=== PATIENT | male | born 1950 | race Caucasian/White ===

== ENCOUNTER → 2016-04-19 | Outpatient (CLI) | payer MEDICARE, BC | LOC: MW.CHORTHO 08:00 | PROVIDERS: ATTEND Orthopaedic Surgery | DX: M75.42 Impingement syndrome of left shoulder (principal); M75.102 Unspecified rotator cuff tear or rupture of left shoulder, not specified as traumatic; Z98.890 Other specified postprocedural states | CPT/HCPCS: G0463 ==

== ENCOUNTER → 2016-04-26 | Outpatient (CLI) | payer MEDICARE, BC | LOC: MW.CHIM 08:50 | PROVIDERS: ATTEND Internal Medicine | DX: I10 Essential (primary) hypertension (principal); E11.9 Type 2 diabetes mellitus without complications; E78.5 Hyperlipidemia, unspecified; N52.9 Male erectile dysfunction, unspecified | CPT/HCPCS: 36415; 80053; 80061; 83036; 85025; 99214 ==

== ENCOUNTER → 2016-04-28 | Outpatient (CLI) | payer MEDICARE, BC | LOC: MW.CHGS 08:00 | PROVIDERS: ATTEND Surgery | DX: M62.08 Separation of muscle (nontraumatic), other site (principal); Z12.11 Encounter for screening for malignant neoplasm of colon | CPT/HCPCS: 99203 ==

== ENCOUNTER → 2016-06-02 | Outpatient (CLI) | payer MEDICARE, BC ==
--- NOTE | 2016-06-03 16:16 | MR ---
EXAM DATE: 06/02/16 PATIENT'S AGE: 65 Patient: PATRICIO PANTOJA Facility: [place], [place] Site . Site : 1950 Study: MRI Shoulder Left [id number]/27/2017 3:51:25 PM Ordering Physician: Angelia Moore Final Report: HISTORY: Shoulder pain with history of previous surgery. Technique: Routine shoulder protocol. Findings: Rotator cuff: Multiple anchors are seen in the lateral portion of the humeral head consistent with an apparent previous rotator cuff repair. There are no previous studies for comparison. There is prominent increased signal intensity and high-grade diffuse thinning of the supraspinatus tendon. A definite full- thickness retear is not confirmed. There is mild tendinosis and low-grade thinning of the subscapularis and infraspinatus tendons. There is a large subacromial bursa effusion present. Acromioclavicular joint region: Mild degenerative change is present. There is a flat, type 1 acromial undersurface. Biceps labral complex: There is likely degenerative tearing and fragmentation of the superior labrum. There is disruption of the long biceps tendon without visualization of the tendon presumably due to retraction out of the field of view. The anterior and posterior labrum are intact. Glenohumeral joint: Mild articular cartilage loss is noted. There is mild shoulder joint effusion present. No loose body is noted. Bones and soft tissues: No findings for fracture or tumor. Impression: 1. Evidence for previous rotator cuff repair. There is prominent increased signal intensity and high-grade thinning of the supraspinatus tendon but no full -thickness retear is noted. There is also mild tendinosis and low-grade thinning of the subscapularis and infraspinatus tendons. Large subacromial bursa effusion indicates bursitis. 2. Degenerative tearing of the superior labrum with disruption of the long biceps tendon. Dictated by Randy Polk MD @ Jun 03 2016 9:43AM (Electronic Signature) Report Signed by Proxy. ANNEMARIE
== END ==
LOC: MW.MRI 14:16
PROVIDERS: ATTEND Orthopaedic Surgery
DX: M25.512 Pain in left shoulder (principal); M75.42 Impingement syndrome of left shoulder; M75.102 Unspecified rotator cuff tear or rupture of left shoulder, not specified as traumatic; M75.82 Other shoulder lesions, left shoulder; M75.52 Bursitis of left shoulder
CPT/HCPCS: 73221-26-LT; 73221-LT

== ENCOUNTER → 2016-06-09 | Outpatient (CLI) | payer MEDICARE, BC | LOC: MW.CHORTHO 08:00 | PROVIDERS: ATTEND Orthopaedic Surgery | DX: M75.42 Impingement syndrome of left shoulder (principal); M75.102 Unspecified rotator cuff tear or rupture of left shoulder, not specified as traumatic | CPT/HCPCS: G0463 ==

== ENCOUNTER 2017-02-09 11:08 | Day surgery (SDC) | payer MEDICARE, BC ==
[~2017-02-09 11:08] MED LIST: Lactated Ringers 1,000 ML IV SCH
[2017-02-09] MEDS ORDERED: Propofol 200 MG/20 ML SDV ONE (12:52)
[2017-02-09] MEDS ORDERED: fentaNYL 100 MCG/2 ML SDV ONE (12:52)
[2017-02-09] MEDS ORDERED: Lidocaine 2% 5 ML SDV ONE (12:52)
--- NOTE | 2017-02-09 13:03 | PCM.PREANE ---
Preanesthetic Assessment - Anesthesia/Transfusion/Family Hx Anesthesia History: Prior Anesthesia Without Reaction Family History of Anesthesia Reaction: No Transfusion History: No Prior Transfusion(s) Intubation History: Unknown - Review of Systems General: No Symptoms Pulmonary: No Symptoms Cardiovascular: No Symptoms Gastrointestinal: Other (acid reflux) Neurological: No Symptoms Other: Reports: None - Physical Assessment O2 Sat by Pulse Oximetry: 97 Respiratory Rate: 16 Vital Signs: Last Vital Signs Temp 36.2 C 02/09/17 11:33 Pulse 81 02/09/17 11:33 Resp 16 02/09/17 11:33 BP 125/90 02/09/17 11:33 Pulse Ox 97 02/09/17 11:33 Height: 1.83 m Weight: 113.398 kg ASA Class: 3 Mental Status: Alert & Oriented x3 Airway Class: Mallampati = 2 Dentition: Reports: Normal Dentition (small chip front upper incisor) Thyro-Mental Finger Breadths: 2 Mouth Opening Finger Breadths: 3 ROM/Head Extension: Full Lungs: Clear to Auscultation, Normal Respiratory Effort Cardiovascular: Regular Rate, Regular Rhythm - Allergies Allergies/Adverse Reactions: Allergies Allergy/AdvReac Type Severity Reaction Status Date / Time allopurinol Allergy unknown Verified 02/03/17 12:08 hydrochlorothiazide Allergy unknown Verified 02/03/17 12:08 - Blood Blood Available: No - Anesthesia Plan Pre-Op Medication Ordered: None - Acknowledgements Anesthesia Type Planned: MAC Pt an Appropriate Candidate for the Planned Anesthesia: Yes Alternatives and Risks of Anesthesia Discussed w Pt/Guardian: Yes Pt/Guardian Understands and Agrees with Anesthesia Plan: Yes PreAnesthesia Questionnaire HEENT History: Reports: Allergic Rhinitis Cardiovascular History: Reports: High Cholesterol, Hypertension Other Cardiovascular History: has had recent cardiac work-op, states "cleared" Respiratory History: Reports: Sleep Apnea Other Respiratory History: does not use CPAP Gastrointestinal History: Reports: Colon Polyp Genitourinary History: Reports: BPH Musculoskeletal History: Reports: Arthritis, Other (See Below) Other Musculoskeletal History: left shoulder pain at present Endocrine/Metabolic History: Reports: Diabetes, Type II, Obesity/BMI 30+ - Infectious Disease History Infectious Disease History: Reports: Chicken Pox - Past Surgical History Head Surgeries/Procedures: Reports: None HEENT Surgical History: Reports: Naso-Sinus Surgery Other HEENT Surgeries/Procedures: has 2 upper dental stems (for implants) GI Surgical History: Reports: Colonoscopy (9 years ago) Musculoskeletal Surgical History: Reports: Shoulder Surgery Other Musculoskeletal Surgeries/Procedures:: left rotator cuff surgery Dr. Galan 12/2015 - SUBSTANCE USE Smoking Status *Q: Never Smoker Tobacco Use Within Last Twelve Months: No Second Hand Smoke Exposure: No Recreational Drug Use History: No - HOME MEDS Home Medications: Home Meds Aspirin [[place] Aspirin] 81 mg PO DAILY 01/01/16 [History] Enalapril Maleate 10 mg PO DAILY 01/01/16 [History] metFORMIN HCl [Metformin HCl] 500 mg PO DAILY 01/01/16 [History] Simvastatin [Zocor] 20 mg PO BEDTIME 02/03/17 [History] Tadalafil [Cialis] 5 mg PO DAILY 02/03/17 [History] - CURRENT (IN HOUSE) MEDS Current Meds: Current Medications Lactated Ringer's (Ringers, Lactated) 1,000 mls @ 125 mls/hr IV ASDIRECTED RADHA Last Admin: 02/09/17 11:32 Dose: 125 mls/hr Discontinued Medications Fentanyl (Sublimaze) Confirm Administered Dose 100 mcg .ROUTE .STK-MED ONE Stop: 02/09/17 12:53 Lidocaine (Xylocaine-Mpf 2%) Confirm Administered Dose 5 ml .ROUTE .STK-MED ONE Stop: 02/09/17 12:53 Propofol (Diprivan 20 Ml) Confirm Administered Dose 400 mg .ROUTE .STK-MED ONE Stop: 02/09/17 12:53
--- NOTE | 2017-02-09 13:36 | PCM.OPNOTE ---
- General Post-Op/Procedure Note Date of Surgery/Procedure: 02/09/17 Operative Procedure(s): egd w bx and colonoscopy Findings: see dict [id number] Pre Op Diagnosis: abd pain and gerd Post-Op Diagnosis: gastritis and gerd, hemorrhoid Anesthesia Technique: Moderate Sedation Primary Surgeon: Enoc Curtis Pathology: egd bx Complications: None Condition: Good
--- NOTE | 2017-02-09 14:19 | OR ---
SURGEON: Enoc Curtis MD DATE OF PROCEDURE: 02/09/2017 PREOPERATIVE DIAGNOSIS: Abdominal pain and acid reflux. POSTOPERATIVE DIAGNOSES: 1. EGD diagnoses, acid reflux and gastritis. 2. Colonoscopy diagnosis, internal hemorrhoid. PROCEDURE PERFORMED: Esophagogastroduodenoscopy with biopsy and colonoscopy. EGD FINDINGS: 1. The patient is easily sedated with SR VICE PRESIDENT and Diprivan. The patient is soundly snoring. 2. Oropharynx and proximal esophagus are free of disease and no stricture, inflammation, blood, or ulcer. Distal esophagus at GE junction at 40 shows mild salmon color change consistent with acid reflux. Stomach rugae is normal in appearance. There is no blood, ulcer, food particle, or bile. There was one drop of blood, I do not think it mean anything, but we saw just one drop. Antrum was a little bit inflamed. Duodenum was grossly normal. Scope retrieved back to the stomach. Retroflexed look at the fundus of the stomach, there was no hiatal hernia. Biopsy done at antrum, body, GE junction at 40 and sucked out the air while scope pulling out. Again, we did not encounter any food or bile and it is a little bit inflamed in the antrum. PROCEDURE IN DETAIL: The patient was taken to the endoscopy room, and with the SR VICE PRESIDENT, Diprivan was administered. A well-lubricated EGD scope was gently inserted through the oropharynx, down the esophagus, passing through the gastroesophageal junction, into the stomach. The mucosa was examined upon the passage. Any etiology will be noted. Once in the stomach, we continued to advance to the distal antrum, passed through the pylorus into the second portion of the duodenum. Again, the mucosa was examined for any abnormality and etiology. The scope was then retrieved back to the stomach and then retroflexed to look at the fundus of the stomach. If a biopsy was indicated, we will biopsy the antrum, body, and gastroesophageal junction. The air will be sucked out while the scope is retrieved to reduce the patient's discomfort. The patient tolerated the procedure well. There were no intraoperative complications. Dr. Curtis was present through the whole procedure. Prior to surgery, a time-out had been called, the patient identified, procedure identified and antibiotic administered. COLONOSCOPY FINDINGS: The patient is easily sedated with SR VICE PRESIDENT and Diprivan. The patient is soundly snoring and bowel prep is average to good, and a very little liquid stool, no semi-formed stool. Colon is rather straight forward. Cecum indicated by ileocecal fold, one-to-one indentation. Light immittance is not observed. Appendiceal orifice is not observed. Mucosa examined upon scope pulling out. The patient does not have diverticulosis, polyp, mass, growth, inflammation, stricture, ulceration, bleeding, none of those and no polyps. The patient has moderate internal hemorrhoids and moderate external hemorrhoids. The patient would benefit from a repeat colonoscopy in 10 years from today or if clinically indicated otherwise. PROCEDURE IN DETAIL: The patient was taken to the endoscopy room. A time out was called, patient identified, and procedure identified. Diprivan was then administrated. Patient went from awake to sleep, hearing doctor talking or door closing is normal. Perineum inspection and digital examination were then performed. A well- lubricated colonoscope was gently inserted through the rectum, advanced past the rectosigmoid junction, the descending colon, splenic flexure, transverse colon, hepatic flexure, ascending colon, arrived to the cecum. Cecum was identified as dictated in the finding. Then the scope was carefully withdrawn while attention was paid to the mucosal surface for any abnormality. Air will be sucked out during the scope withdrawal. At the rectum, retroflexed to examine any rectal diseases, fistula or hemorrhoids. The patient tolerated procedure well. There were no intraoperative complications, and Dr. Curtis was present throughout the whole procedure. MIGUEL ANGEL / ZACH /[id number]
[2017-02-09 14:20] VITALS: BP 135/84
== END 2017-02-09 14:20 | disposition home or self-care (01) ==
LOC: MW.SDS 11:08
PROVIDERS: ATTEND Surgery
DX: K21.9 Gastro-esophageal reflux disease without esophagitis (principal); K29.50 Unspecified chronic gastritis without bleeding; R07.89 Other chest pain; I10 Essential (primary) hypertension; E11.9 Type 2 diabetes mellitus without complications; E78.5 Hyperlipidemia, unspecified; N40.0 Benign prostatic hyperplasia without lower urinary tract symptoms; N52.9 Male erectile dysfunction, unspecified; E66.9 Obesity, unspecified; M17.12 Unilateral primary osteoarthritis, left knee; J32.9 Chronic sinusitis, unspecified; K43.9 Ventral hernia without obstruction or gangrene; K64.4 Residual hemorrhoidal skin tags; K64.8 Other hemorrhoids; Z88.8 Allergy status to other drugs, medicaments and biological substances; Z79.82 Long term (current) use of aspirin; Z79.84 Long term (current) use of oral hypoglycemic drugs; Z68.33 Body mass index [BMI] 33.0-33.9, adult; Z86.010 Personal history of colon polyps
CPT/HCPCS: 43239; 45378; 82962; J3010; J7120; 00813; 88305; 88312; J2704

== ENCOUNTER 2020-08-30 22:19 | Observation (INO) | payer MEDICARE, BC ==
--- NOTE | 2020-08-30 22:22 | EDM.PDOC ---
ED HPI GENERAL MEDICAL PROBLEM - General Stated Complaint: CELULLITIS ON LEG Time Seen by Provider: 08/30/20 22:20 Source of Information: Reports: Patient History Limitations: Reports: No Limitations - History of Present Illness INITIAL COMMENTS - FREE TEXT/NARRATIVE: 69-year-old male past medical history hypertension, cellulitis presents for worsening cellulitis of left lower extremity. Patient was seen by his primary care physician 3 days ago and started on Keflex and Bactrim for presumed cellulitis of the left lower extremity. Started as a red area around his knee and now spreading to his entire lower leg. Denies any systemic symptoms of fever, chest pain, shortness of breath, nausea, vomiting. He has been compliant with his antibiotics. He notes that he had a x-ray imaging of the knee which was unremarkable as well as an ultrasound which did not reveal evidence of DVT or abscess. He does note an area on his anterior knee that was concerning for abscess hence the ultrasound but seems to be getting bigger and more painful. Left Knee Pain Score (Numeric/FACES): 10 - Related Data Allergies Allergy/AdvReac Type Severity Reaction Status Date / Time allopurinol Allergy unknown Verified 08/30/20 22:34 hydrochlorothiazide Allergy unknown Verified 08/30/20 22:34 Home Meds: Home Meds Enalapril Maleate 10 mg PO DAILY 01/01/16 [History] metFORMIN HCl [Metformin HCl] 500 mg PO DAILY 01/01/16 [History] Simvastatin [Zocor] 20 mg PO BEDTIME 02/03/17 [History] tadalafiL [Cialis] 5 mg PO DAILY 02/03/17 [History] Metoprolol Tartrate 25 mg PO BID 08/30/20 [History] Pantoprazole Sodium [Protonix] 40 mg PO DAILY 08/30/20 [History] Sulfamethoxazole/Trimethoprim [Septra DS] DAILY 08/30/20 [History] cephALEXin [Keflex] 500 mg PO QID 08/30/20 [History] Past Medical History HEENT History: Reports: Allergic Rhinitis Cardiovascular History: Reports: High Cholesterol, Hypertension Other Cardiovascular History: has had recent cardiac work-op, states "cleared" Respiratory History: Reports: Sleep Apnea Other Respiratory History: does not use CPAP Gastrointestinal History: Reports: Colon Polyp Genitourinary History: Reports: BPH Musculoskeletal History: Reports: Arthritis, Other (See Below) Other Musculoskeletal History: left shoulder pain at present Endocrine/Metabolic History: Reports: Diabetes, Type II, Obesity/BMI 30+ - Infectious Disease History Infectious Disease History: Reports: Chicken Pox - Past Surgical History Head Surgeries/Procedures: Reports: None HEENT Surgical History: Reports: Naso-Sinus Surgery Other HEENT Surgeries/Procedures: has 2 upper dental stems (for implants) GI Surgical History: Reports: Colonoscopy (9 years ago) Musculoskeletal Surgical History: Reports: Shoulder Surgery Other Musculoskeletal Surgeries/Procedures:: left rotator cuff surgery Dr. Galan 12/2015 Social & Family History - Family History Family Medical History: No Pertinent Family History - Caffeine Use Caffeine Use: Reports: None ED ROS GENERAL - Review of Systems Review Of Systems: Comprehensive ROS is negative, except as noted in HPI. ED EXAM, GENERAL - Physical Exam Exam: See Below Exam Limited By: No Limitations General Appearance: Alert, WD/WN, No Apparent Distress Ears: Hearing Grossly Normal Throat/Mouth: Normal Voice, No Airway Compromise Head: Atraumatic, Normocephalic Neck: Normal Inspection Respiratory/Chest: No Respiratory Distress, Lungs Clear, Normal Breath Sounds, No Accessory Muscle Use Cardiovascular: Normal Peripheral Pulses, Regular Rate, Rhythm Extremities: Other (swelling/erythema/TTP of L knee and lower leg; area of induration and swelling around 3x3-cm concerning for abscess although no palpable fluctuance) Neurological: Alert Psychiatric: Normal Affect, Normal Mood Skin Exam: Warm, Dry, Intact, Normal Color ED I&D PROCEDURES - I&D Site: L distal knee Skin prep: Isopropyl Alcohol (Alcohol) Local anesthesia - Lidocaine (Xylocaine): 1% with EPI Local Anesthetic Volume: 4cc Area Incised With: 11 Blade Drainage: Other (serosanguaneous fluid ) Packed With: None Sterile Dressinx4(s) Complications: No Course - Vital Signs Last Recorded V/S: Last Vital Signs Temp 97.8 F 08/30/20 22:34 Pulse 87 08/31/20 00:21 Resp 18 08/31/20 00:21 BP 152/82 H 08/31/20 00:21 Pulse Ox 97 08/31/20 00:21 - Orders/Labs/Meds Orders: Active Orders 24 hr Category Date Time Status CULTURE BLOOD [BC] Stat Lab 08/30/20 23:22 Received CULTURE BLOOD [BC] Stat Lab 08/30/20 23:22 Received CULTURE, ANAEROBE & AEROBE [MREF] Stat Lab 08/31/20 00:40 Ordered Sodium Chloride 0.9% [Saline Flush] Med 08/30/20 23:21 Active 10 ml FLUSH ASDIRECTED PRN Sodium Chloride 0.9% [Saline Flush] Med 08/30/20 23:21 Active 2.5 ml FLUSH ASDIRECTED PRN Blood Culture x2 Reflex Set [OM.PC] Stat Oth 08/30/20 23:21 Ordered Saline Lock Insert [OM.PC] Stat Ot 08/30/20 23:21 Ordered Medication Orders Sodium Chloride (Sodium Chloride 0.9% 10 Ml Syringe) 10 ml FLUSH ASDIRECTED PRN PRN Reason: Keep Vein Open Last Admin: 08/31/20 00:04 Dose: 10 ml Documented by: JIM Sodium Chloride (Sodium Chloride 0.9% 2.5 Ml Syringe) 2.5 ml FLUSH ASDIRECTED PRN PRN Reason: Keep Vein Open Last Admin: 08/31/20 00:04 Dose: 2.5 ml Documented by: JIM Labs: Laboratory Tests 08/31/20 08/31/20 Range/Units 00:02 00:02 WBC 11.91 H (4.0-11.0) K/uL RBC 5.09 (4.50-5.90) M/uL Hgb 15.6 (13.0-17.0) g/dL Hct 45.2 (38.0-50.0) % MCV 88.8 (80.0-98.0) fL MCH 30.6 (27.0-32.0) pg MCHC 34.5 (31.0-37.0) g/dL RDW Std Deviation 43.5 (28.0-62.0) fl RDW Coeff of Oscar 14 (11.0-15.0) % Plt Count 250 (150-400) K/uL MPV 10.00 (7.40-12.00) fL Neut % (Auto) 80.3 H (48.0-80.0) % Lymph % (Auto) 7.8 L (16.0-40.0) % Meriwether % (Auto) 9.4 (0.0-15.0) % Eos % (Auto) 2.3 (0.0-7.0) % Baso % (Auto) 0.2 (0.0-1.5) % Neut # (Auto) 9.6 H (1.4-5.7) K/uL Lymph # (Auto) 0.9 (0.6-2.4) K/uL Meriwether # (Auto) 1.1 H (0.0-0.8) K/uL Eos # (Auto) 0.3 (0.0-0.7) K/uL Baso # (Auto) 0.0 (0.0-0.1) K/uL Sodium 132 L (136-148) mmol/L Potassium 4.6 (3.5-5.1) mmol/L Chloride 98 (98-107) mmol/L Carbon Dioxide 23.1 (21.0-32.0) mmol/L BUN 22 H (7.0-18.0) mg/dL Creatinine 1.6 H (0.8-1.3) mg/dL Est Cr Clr Drug Dosing 47.83 mL/min Estimated GFR (MDRD) 43.1 ml/min Glucose 226 H (74-106) mg/dL Calcium 9.0 (8.5-10.1) mg/dL Total Bilirubin 0.6 (0.2-1.0) mg/dL AST 21 (15-37) IU/L ALT 36 (14-63) IU/L Alkaline Phosphatase 75 (46-116) U/L Total Protein 7.5 (6.4-8.2) g/dL Albumin 3.5 (3.4-5.0) g/dL Globulin 4.0 (2.6-4.0) g/dL Albumin/Globulin Ratio 0.9 (0.9-1.6) Meds: Medications Generic Name Dose Route Start Last Admin Trade Name Freq PRN Reason Stop Dose Admin Sodium Chloride 10 ml 08/30/20 23:21 08/31/20 00:04 Sodium Chloride 0.9% 10 Ml Syringe FLUSH 10 ml ASDIRECTED PRN Administration Keep Vein Open Sodium Chloride 2.5 ml 08/30/20 23:21 08/31/20 00:04 Sodium Chloride 0.9% 2.5 Ml Syringe FLUSH 2.5 ml ASDIRECTED PRN Administration Keep Vein Open Discontinued Medications Generic Name Dose Route Start Last Admin Trade Name Freq PRN Reason Stop Dose Admin Sodium Chloride 1,000 mls @ 999 mls/hr 08/30/20 23:21 08/31/20 00:04 Normal Saline IV 08/31/20 00:21 999 mls/hr .Bolus ONE Administration Clindamycin Phosphate 600 mg/ 50 mls @ 100 mls/hr 08/30/20 23:21 08/31/20 00:05 Premix IV 08/30/20 23:50 100 mls/hr ONETIME ONE Administration Lidocaine/Epinephrine 20 ml 08/31/20 00:13 08/31/20 00:20 Lidocaine 1% With Epinephrine 1:100,000 20 Ml Mdv INJECT 08/31/20 00:14 20 ml ONETIME ONE Administration Morphine Sulfate 4 mg 08/30/20 23:21 08/31/20 00:05 Morphine 4 Mg/Ml Syringe IVPUSH 08/30/20 23:22 4 mg ONETIME ONE Administration Morphine Sulfate 4 mg 08/31/20 00:36 Morphine 4 Mg/Ml Syringe IVPUSH 08/31/20 00:37 ONETIME ONE Morphine Sulfate 4 mg 08/31/20 00:39 Morphine 4 Mg/Ml Syringe IVPUSH 08/31/20 00:40 ONETIME ONE - Re-Assessments/Exams Free Text/Narrative Re-Assessment/Exam: 08/30/20 23:26 Patient symptoms are consistent with failed outpatient cellulitis treatment with possible superimposed abscess. We will get labs and will start IV antibiotics. Will give medication for pain control. Will bedside ultrasound the area of concern for abscess to see if patient would benefit from incision and drainage. 08/31/20 00:13 Bedside POCUS of the area of induration does show some fluid collection; will attempt I&D. 08/31/20 00:35 Some serosanguineous drainage but no purulent drainage from area of induration. Will follow up lab results and admit for failed outpatient cellulitis Departure - Departure Time of Disposition: 00:41 Disposition: Home, Self-Care 01 Condition: Good Clinical Impression: Cellulitis Qualifiers: Site of cellulitis: extremity Site of cellulitis of extremity: lower extremity Laterality: left Qualified Code(s): L03.116 - Cellulitis of left lower limb - Discharge Information Referrals: Scott Bullard MD [Primary Care Provider] - Sepsis Event Note (ED) - Focused Exam Vital Signs: Vital Signs Temp Pulse Resp BP Pulse Ox 08/31/20 00:21 87 18 152/82 H 97 08/30/20 22:34 97.8 F 99 19 165/82 H 95 - My Orders Last 24 Hours: My Active Orders 08/30/20 23:21 Sodium Chloride 0.9% [Saline Flush] 10 ml FLUSH ASDIRECTED PRN Sodium Chloride 0.9% [Saline Flush] 2.5 ml FLUSH ASDIRECTED PRN Blood Culture x2 Reflex Set [OM.PC] Stat Saline Lock Insert [OM.PC] Stat 08/30/20 23:22 CULTURE BLOOD [BC] Stat CULTURE BLOOD [BC] Stat 08/31/20 00:40 CULTURE, ANAEROBE & AEROBE [MREF] Stat - Assessment/Plan Last 24 Hours: My Active Orders 08/30/20 23:21 Sodium Chloride 0.9% [Saline Flush] 10 ml FLUSH ASDIRECTED PRN Sodium Chloride 0.9% [Saline Flush] 2.5 ml FLUSH ASDIRECTED PRN Blood Culture x2 Reflex Set [OM.PC] Stat Saline Lock Insert [OM.PC] Stat 08/30/20 23:22 CULTURE BLOOD [BC] Stat CULTURE BLOOD [BC] Stat 08/31/20 00:40 CULTURE, ANAEROBE & AEROBE [MREF] Stat
[2020-08-30] MEDS ORDERED: Sodium Chloride 0.9% 10 ML Syringe FLUSH PRN (23:21)
[2020-08-30] MEDS ORDERED: Sodium Chloride 0.9% 1,000 ML IV ONE (23:21)
[2020-08-30] MEDS ORDERED: Morphine 4 MG/ML Syringe IVPUSH ONE (23:21)
[2020-08-30] MEDS ORDERED: Sodium Chloride 0.9% 2.5 ML Syringe FLUSH PRN (23:21)
[2020-08-30] MEDS ORDERED: Clindamycin Phosphate in D5W 600 MG in Premix Bag 1 BAG IV ONE ×2 (23:21)
[2020-08-31] MEDS ORDERED: Lidocaine 1% with EPINEPHrine 1:100,000 20 ML MDV INJECT ONE (00:13)
[2020-08-31 00:33] LABS: CARBON DIOXIDE,CO2 23.1 mmol/L (21.0-32.0); POTASSIUM,K 4.6 mmol/L (3.5-5.1)
[2020-08-31] MEDS ORDERED: Morphine 4 MG/ML Syringe IVPUSH ONE ×2 (00:36→00:39)
[2020-08-31] MEDS ORDERED: Acetaminophen 325 MG Tab PO PRN (03:04)
[2020-08-31] MEDS ORDERED: 50% Dextrose in Water 50 ML Syringe IVPUSH PRN (03:09)
[2020-08-31] MEDS ORDERED: Glucagon,Human Recombinant 1 MG Vial IM PRN (03:09)
[2020-08-31] MEDS ORDERED: Lactated Ringers 1,000 ML IV SCH (03:15)
[2020-08-31] MEDS: Morphine 2 MG/ML SYRINGE IVPUSH PRN ×4 (03:35→20:36)
[2020-08-31] MEDS: Piperacillin/Tazobactam 3.375 GM in Sodium Chloride 0.9% 50 ML IV SCH ×2 (03:36→14:06)
[2020-08-31] MEDS: VANCOmycin 1.5 GM/300 ML 1.5 GM in Premix Bag 1 BAG IV SCH (04:43)
[2020-08-31 06:15] LABS: CARBON DIOXIDE,CO2 25.8 mmol/L (21.0-32.0)
--- NOTE | 2020-08-31 07:37 | PCM.HP.2 ---
<Jonnie Schultz - Last Filed: 08/31/20 15:31> H&P History of Present Illness - General Date of Service: 08/31/20 Admit Problem/Dx: Admission Diagnosis/Problem Admission Diagnosis/Problem Cellulitis - History of Present Illness Initial Comments - Free Text/Narative: 69-year-old male presented to emergency department yesterday due to worsening left knee pain with movement, tenderness, redness, swelling. Patient was seen by a primary care provider 3 days prior, diagnosed with cellulitis, and was started on oral Keflex and Bactrim which he was complaint with. Patient states the pain and redness of the left knee increased over the weekend limiting mobility. Past has a past medical history of hypertension, diabetes. Upon admission patient had no symptoms of fever, chest pain, shortness of breath, nausea, vomiting. He states an x-ray of the knee at PCP visit which was unremarkable in addition to an ultrasound which did not reveal evidence of DVT or abscess. I&D performed in the ED revealed no purulent discharge, some serosanguineous drainage noted. Drainage was sent for culture. Left knee x-ray during admission revealed, superficial prepatellar and infrapatellar soft tissue swelling without evidence of acute osseous abnormality. WBC 11.58. Patient started on vancomycin, Zosyn every 8hr, morphine for pain. Left Knee Pain Score (Numeric/FACES): 10 - Related Data Allergies/Adverse Reactions: Allergies Allergy/AdvReac Type Severity Reaction Status Date / Time allopurinol Allergy unknown Verified 08/31/20 02:12 hydrochlorothiazide Allergy unknown Verified 08/31/20 02:12 Home Medications: Home Meds Enalapril Maleate 10 mg PO DAILY 01/01/16 [History] metFORMIN HCl [Metformin HCl] 500 mg PO DAILY 01/01/16 [History] Simvastatin [Zocor] 20 mg PO BEDTIME 02/03/17 [History] tadalafiL [Cialis] 5 mg PO DAILY 02/03/17 [History] Metoprolol Tartrate 25 mg PO BID 08/30/20 [History] Pantoprazole Sodium [Protonix] 40 mg PO DAILY 08/30/20 [History] cephALEXin [Keflex] 500 mg PO QID 08/30/20 [History] Sildenafil [Revatio] 20 mg PO QID PRN 08/31/20 [History] Sulfamethoxazole/Trimethoprim [Sulfamethoxazole-Tmp Ds Tablet] 1 tab PO DAILY 08/31/20 [History] Triamcinolone Acetonide [Triamcinolone Acetonide 0.1% Oint] 1 applic TOP BID PRN 08/31/20 [History] Past Medical History HEENT History: Reports: Allergic Rhinitis Cardiovascular History: Reports: High Cholesterol, Hypertension Other Cardiovascular History: has had recent cardiac work-op, states "cleared" Respiratory History: Reports: Sleep Apnea Other Respiratory History: does not use CPAP Gastrointestinal History: Reports: Colon Polyp Genitourinary History: Reports: BPH Musculoskeletal History: Reports: Arthritis, Other (See Below) Other Musculoskeletal History: left shoulder pain at present Endocrine/Metabolic History: Reports: Diabetes, Type II, Obesity/BMI 30+ - Infectious Disease History Infectious Disease History: Reports: Chicken Pox - Past Surgical History Head Surgeries/Procedures: Reports: None HEENT Surgical History: Reports: Naso-Sinus Surgery Other HEENT Surgeries/Procedures: has 2 upper dental stems (for implants) GI Surgical History: Reports: Colonoscopy Musculoskeletal Surgical History: Reports: Shoulder Surgery Other Musculoskeletal Surgeries/Procedures:: left rotator cuff surgery Dr. Galan 12/2015 Social & Family History - Family History Family Medical History: No Pertinent Family History - Tobacco Use Tobacco Use Status *Q: Never Tobacco User - Caffeine Use Caffeine Use: Reports: Soda - Recreational Drug Use Recreational Drug Use: No H&P Review of Systems - Review of Systems: Review Of Systems: See Below General: Denies: Fever, Chills, Weakness Pulmonary: Denies: Shortness of Breath, Wheezing, Pleuritic Chest Pain, Cough Cardiovascular: Denies: Chest Pain, Dyspnea on Exertion, Edema Gastrointestinal: Denies: Abdominal Pain Musculoskeletal: Reports: Joint Swelling (left knee) Neurological: Denies: Confusion, Dizziness, Headache Exam - Exam Exam: See Below - Vital Signs Vital Signs: Last Vital Signs Temp 98.5 F 08/31/20 02:23 Pulse 74 08/31/20 02:23 Resp 18 08/31/20 02:23 BP 145/76 H 08/31/20 02:23 Pulse Ox 96 08/31/20 02:23 Weight: 107.955 kg - Exam General: Alert, Oriented Lungs: Clear to Auscultation, Normal Respiratory Effort Cardiovascular: Regular Rate, Regular Rhythm GI/Abdominal Exam: Soft, Non-Tender, Other (diastasis recti) Extremities: No Pedal Edema, Increased Warmth (left knee). No: Normal Range of Motion (left knee limited ROM), Non-Tender (left knee tenderness) Neuro Extensive - Mental Status: Alert, Oriented x3 - Patient Data Lab Results Last 24 hrs: Laboratory Results - last 24 hr 08/31/20 08/31/20 08/31/20 Range/Units 00:02 00:02 05:15 WBC 11.91 H 11.58 H (4.0-11.0) K/uL RBC 5.09 4.75 (4.50-5.90) M/uL Hgb 15.6 14.5 (13.0-17.0) g/dL Hct 45.2 42.5 (38.0-50.0) % MCV 88.8 89.5 (80.0-98.0) fL MCH 30.6 30.5 (27.0-32.0) pg MCHC 34.5 34.1 (31.0-37.0) g/dL RDW Std Deviation 43.5 44.9 (28.0-62.0) fl RDW Coeff of Oscar 14 14 (11.0-15.0) % Plt Count 250 235 (150-400) K/uL MPV 10.00 10.40 (7.40-12.00) fL Neut % (Auto) 80.3 H 73.6 (48.0-80.0) % Lymph % (Auto) 7.8 L 11.1 L (16.0-40.0) % Mellette % (Auto) 9.4 12.8 (0.0-15.0) % Eos % (Auto) 2.3 2.3 (0.0-7.0) % Baso % (Auto) 0.2 0.2 (0.0-1.5) % Neut # (Auto) 9.6 H 8.5 H (1.4-5.7) K/uL Lymph # (Auto) 0.9 1.3 (0.6-2.4) K/uL Mellette # (Auto) 1.1 H 1.5 H (0.0-0.8) K/uL Eos # (Auto) 0.3 0.3 (0.0-0.7) K/uL Baso # (Auto) 0.0 0.0 (0.0-0.1) K/uL Nucleated RBC % 0.0 /100WBC Nucleated RBCs # 0 K/uL Sodium 132 L (136-148) mmol/L Potassium 4.6 (3.5-5.1) mmol/L Chloride 98 (98-107) mmol/L Carbon Dioxide 23.1 (21.0-32.0) mmol/L BUN 22 H (7.0-18.0) mg/dL Creatinine 1.6 H (0.8-1.3) mg/dL Est Cr Clr Drug Dosing 47.83 mL/min Estimated GFR (MDRD) 43.1 ml/min Glucose 226 H (74-106) mg/dL Calcium 9.0 (8.5-10.1) mg/dL Total Bilirubin 0.6 (0.2-1.0) mg/dL AST 21 (15-37) IU/L ALT 36 (14-63) IU/L Alkaline Phosphatase 75 (46-116) U/L Total Protein 7.5 (6.4-8.2) g/dL Albumin 3.5 (3.4-5.0) g/dL Globulin 4.0 (2.6-4.0) g/dL Albumin/Globulin Ratio 0.9 (0.9-1.6) 08/31/20 Range/Units 05:15 WBC (4.0-11.0) K/uL RBC (4.50-5.90) M/uL Hgb (13.0-17.0) g/dL Hct (38.0-50.0) % MCV (80.0-98.0) fL MCH (27.0-32.0) pg MCHC (31.0-37.0) g/dL RDW Std Deviation (28.0-62.0) fl RDW Coeff of Oscar (11.0-15.0) % Plt Count (150-400) K/uL MPV (7.40-12.00) fL Neut % (Auto) (48.0-80.0) % Lymph % (Auto) (16.0-40.0) % Mellette % (Auto) (0.0-15.0) % Eos % (Auto) (0.0-7.0) % Baso % (Auto) (0.0-1.5) % Neut # (Auto) (1.4-5.7) K/uL Lymph # (Auto) (0.6-2.4) K/uL Mellette # (Auto) (0.0-0.8) K/uL Eos # (Auto) (0.0-0.7) K/uL Baso # (Auto) (0.0-0.1) K/uL Nucleated RBC % /100WBC Nucleated RBCs # K/uL Sodium 134 L (136-148) mmol/L Potassium 5.0 (3.5-5.1) mmol/L Chloride 100 (98-107) mmol/L Carbon Dioxide 25.8 (21.0-32.0) mmol/L BUN 20 H (7.0-18.0) mg/dL Creatinine 1.5 H (0.8-1.3) mg/dL Est Cr Clr Drug Dosing 51.09 mL/min Estimated GFR (MDRD) 46.4 ml/min Glucose 122 H (74-106) mg/dL Calcium 8.4 L (8.5-10.1) mg/dL Total Bilirubin (0.2-1.0) mg/dL AST (15-37) IU/L ALT (14-63) IU/L Alkaline Phosphatase (46-116) U/L Total Protein (6.4-8.2) g/dL Albumin (3.4-5.0) g/dL Globulin (2.6-4.0) g/dL Albumin/Globulin Ratio (0.9-1.6) Result Diagrams: 08/31/20 05:15 08/31/20 05:15 Lavell Results Last 24 hrs: Microbiology 08/31/20 00:15 Anaerobic Blood Culture - Final Blood - Venous Sepsis Event Note - Evaluation Sepsis Screening Result: No Definite Risk - Focused Exam Vital Signs: Vital Signs Temp Pulse Resp BP Pulse Ox 08/31/20 02:23 98.5 F 74 18 145/76 H 96 08/31/20 01:29 72 18 151/76 H 97 08/31/20 00:21 87 18 152/82 H 97 08/30/20 22:34 97.8 F 99 19 165/82 H 95 - Problem List (1) Left knee pain SNOMED Code(s): 9757275038 ICD Code: M25.562 - PAIN IN LEFT KNEE Status: Acute Current Visit: Yes (2) Diabetes mellitus SNOMED Code(s): 66627415 ICD Code: E11.9 - TYPE 2 DIABETES MELLITUS WITHOUT COMPLICATIONS Status: Acute Current Visit: Yes (3) Hypertension SNOMED Code(s): 84140927 ICD Code: I10 - ESSENTIAL (PRIMARY) HYPERTENSION Status: Acute Current Visit: Yes (4) Cellulitis SNOMED Code(s): 164101545 ICD Code: L03.90 - CELLULITIS, UNSPECIFIED Status: Acute Current Visit: Yes Qualifiers: Site of cellulitis: extremity Site of cellulitis of extremity: lower extremity Laterality: left Qualified Code(s): L03.116 - Cellulitis of left lower limb Problem List Initiated/Reviewed/Updated: Yes Orders Last 24hrs: Active Orders 24 hr Category Date Time Status Patient Status [ADT] Routine ADT 08/31/20 01:14 Active Accu Check [Blood Glucose Check, Bedside] [RC] TIDAC Care 08/31/20 07:30 Active Ambulate [RC] ASDIRECTED Care 08/31/20 03:08 Active Oxygen Therapy [RC] ASDIRECTED Care 08/31/20 03:08 Active Vital Signs [RC] Q4H Care 08/31/20 07:00 Active [place] [employer] Diet [DIET] Diet 08/31/20 Breakfast Active CULTURE BLOOD [BC] Stat Lab 08/30/20 23:22 Received CULTURE BLOOD [BC] Stat Lab 08/30/20 23:22 Results CULTURE, ANAEROBE & AEROBE [MREF] Stat Lab 08/31/20 00:50 Received VANCOMYCIN TROUGH [CHEM] Timed Lab 09/03/20 02:30 Ordered Acetaminophen [TylenoL] Med 08/31/20 03:04 Active 650 mg PO Q4H PRN Dextrose 50% in Water Med 08/31/20 03:09 Active 50 ml IVPUSH ASDIRECTED PRN Glucagon,Human Recombinant [GlucaGen] Med 08/31/20 03:09 Active 1 mg IM ASDIRECTED PRN Heparin Sodium Med 08/31/20 08:00 Active 5,000 units SUBCUT Q8H Insulin Aspart [NovoLOG] Med 08/31/20 07:30 Active See Protocol SUBCUT TIDAC Lactated Ringers [Ringers, Lactated] 1,000 ml Med 08/31/20 03:15 Active IV ASDIRECTED Morphine Med 08/31/20 03:02 Active 2 mg IVPUSH Q4H PRN Pharmacy to Dose - Vancomycin Med 08/31/20 03:15 Active 1 dose .XX ASDIRECTED Piperacillin/Tazobactam [Piperacil-Tazobact] 3.375 gm Med 08/31/20 04:00 Active Sodium Chloride 0.9% [Normal Saline] 50 ml IV Q8H Sodium Chloride 0.9% [Saline Flush] Med 08/30/20 23:21 Active 10 ml FLUSH ASDIRECTED PRN Sodium Chloride 0.9% [Saline Flush] Med 08/30/20 23:21 Active 2.5 ml FLUSH ASDIRECTED PRN VANCOmycin 1.5 GM/300 ML 1.5 gm Med 08/31/20 03:30 Active Premix Bag 1 bag IV Q24H Blood Culture x2 Reflex Set [OM.PC] Stat Ot 08/30/20 23:21 Ordered Saline Lock Insert [OM.PC] Stat Ot 08/30/20 23:21 Ordered Medication Orders Acetaminophen (Acetaminophen 325 Mg Tab) 650 mg PO Q4H PRN PRN Reason: Pain (mild 1-3) Dextrose/Water (50% Dextrose In Water 50 Ml Syringe) 50 ml IVPUSH ASDIRECTED PRN PRN Reason: Hypoglycemia Glucagon (Glucagon,Human Recombinant 1 Mg Vial) 1 mg IM ASDIRECTED PRN PRN Reason: Hypoglycemia Heparin Sodium (Porcine) (Heparin Sodium 5,000 Units/Ml Vial) 5,000 units SUBCUT Q8H [facility] Lactated Ringer's (Ringers, Lactated) 1,000 mls @ 125 mls/hr IV ASDIRECTED RADHA Piperacillin Sod/Tazobactam (Sod 3.375 gm/ Sodium Chloride) 50 mls @ 100 mls/hr IV Q8H [facility] Last Admin: 08/31/20 03:36 Dose: 100 mls/hr Documented by: KEENAN Vancomycin HCl 1.5 gm/ Premix 300 mls @ 200 mls/hr IV Q24H [facility] Last Admin: 08/31/20 04:43 Dose: 200 mls/hr Documented by: KEENAN Insulin Aspart (Insulin Aspart 100 Units/Ml 3 Ml Pen) 0 unit SUBCUT TIDAC [facility]; Protocol Morphine Sulfate (Morphine 2 Mg/Ml Syringe) 2 mg IVPUSH Q4H PRN PRN Reason: Pain (severe 7-10) Last Admin: 08/31/20 03:35 Dose: 2 mg Documented by: KEENAN Sodium Chloride (Sodium Chloride 0.9% 10 Ml Syringe) 10 ml FLUSH ASDIRECTED PRN PRN Reason: Keep Vein Open Last Admin: 08/31/20 00:04 Dose: 10 ml Documented by: JIM Sodium Chloride (Sodium Chloride 0.9% 2.5 Ml Syringe) 2.5 ml FLUSH ASDIRECTED PRN PRN Reason: Keep Vein Open Last Admin: 08/31/20 00:04 Dose: 2.5 ml Documented by: JIM Vancomycin HCl (Pharmacy To Dose - Vancomycin) 1 dose .XX ASDIRECTED [facility] Assessment/Plan Comment:: Cellulitis left knee-vancomycin, Zosyn every 8 hours, morphine 2 mg every 4 hours for pain Diastases rectiper documentation, CT abdomen 2018 revealed no abdominal hernia. Patient states chronic history of condition and he has seen a surgeon for evaluation. No surgery warranted at this time. Diabetesdiabetic diet, insulin sliding scale low-dose Hypertensionenalapril, metoprolol tartrate <Oni,Hooria - Last Filed: 08/31/20 20:15> H&P History of Present Illness - General Admit Problem/Dx: Admission Diagnosis/Problem Admission Diagnosis/Problem Cellulitis Exam - Vital Signs Vital Signs: Last Vital Signs Temp 36.6 C 08/31/20 17:55 Pulse 81 08/31/20 17:55 Resp 18 08/31/20 17:55 BP 146/77 H 08/31/20 17:55 Pulse Ox 95 08/31/20 17:55 - Patient Data Lab Results Last 24 hrs: Laboratory Results - last 24 hr 08/31/20 08/31/20 08/31/20 Range/Units 00:02 00:02 05:15 WBC 11.91 H 11.58 H (4.0-11.0) K/uL RBC 5.09 4.75 (4.50-5.90) M/uL Hgb 15.6 14.5 (13.0-17.0) g/dL Hct 45.2 42.5 (38.0-50.0) % MCV 88.8 89.5 (80.0-98.0) fL MCH 30.6 30.5 (27.0-32.0) pg MCHC 34.5 34.1 (31.0-37.0) g/dL RDW Std Deviation 43.5 44.9 (28.0-62.0) fl RDW Coeff of Oscar 14 14 (11.0-15.0) % Plt Count 250 235 (150-400) K/uL MPV 10.00 10.40 (7.40-12.00) fL Neut % (Auto) 80.3 H 73.6 (48.0-80.0) % Lymph % (Auto) 7.8 L 11.1 L (16.0-40.0) % Mellette % (Auto) 9.4 12.8 (0.0-15.0) % Eos % (Auto) 2.3 2.3 (0.0-7.0) % Baso % (Auto) 0.2 0.2 (0.0-1.5) % Neut # (Auto) 9.6 H 8.5 H (1.4-5.7) K/uL Lymph # (Auto) 0.9 1.3 (0.6-2.4) K/uL Mellette # (Auto) 1.1 H 1.5 H (0.0-0.8) K/uL Eos # (Auto) 0.3 0.3 (0.0-0.7) K/uL Baso # (Auto) 0.0 0.0 (0.0-0.1) K/uL Nucleated RBC % 0.0 /100WBC Nucleated RBCs # 0 K/uL Sodium 132 L (136-148) mmol/L Potassium 4.6 (3.5-5.1) mmol/L Chloride 98 (98-107) mmol/L Carbon Dioxide 23.1 (21.0-32.0) mmol/L BUN 22 H (7.0-18.0) mg/dL Creatinine 1.6 H (0.8-1.3) mg/dL Est Cr Clr Drug Dosing 47.83 mL/min Estimated GFR (MDRD) 43.1 ml/min Glucose 226 H (74-106) mg/dL POC Glucose (70-99) mg/dL Hemoglobin A1c (4.5 - 6.2) % Calcium 9.0 (8.5-10.1) mg/dL Total Bilirubin 0.6 (0.2-1.0) mg/dL AST 21 (15-37) IU/L ALT 36 (14-63) IU/L Alkaline Phosphatase 75 (46-116) U/L Total Protein 7.5 (6.4-8.2) g/dL Albumin 3.5 (3.4-5.0) g/dL Globulin 4.0 (2.6-4.0) g/dL Albumin/Globulin Ratio 0.9 (0.9-1.6) Triglycerides (0-200) mg/dL Cholesterol (50-200) mg/dL LDL Cholesterol, Calc (60-180) mg/dL VLDL Cholesterol (5-55) mg/dL HDL Cholesterol (40-60) mg/dL Cholesterol/HDL Ratio (3.3-6.0) 08/31/20 08/31/20 08/31/20 Range/Units 05:15 05:15 05:15 WBC (4.0-11.0) K/uL RBC (4.50-5.90) M/uL Hgb (13.0-17.0) g/dL Hct (38.0-50.0) % MCV (80.0-98.0) fL MCH (27.0-32.0) pg MCHC (31.0-37.0) g/dL RDW Std Deviation (28.0-62.0) fl RDW Coeff of Oscar (11.0-15.0) % Plt Count (150-400) K/uL MPV (7.40-12.00) fL Neut % (Auto) (48.0-80.0) % Lymph % (Auto) (16.0-40.0) % Mellette % (Auto) (0.0-15.0) % Eos % (Auto) (0.0-7.0) % Baso % (Auto) (0.0-1.5) % Neut # (Auto) (1.4-5.7) K/uL Lymph # (Auto) (0.6-2.4) K/uL Mellette # (Auto) (0.0-0.8) K/uL Eos # (Auto) (0.0-0.7) K/uL Baso # (Auto) (0.0-0.1) K/uL Nucleated RBC % /100WBC Nucleated RBCs # K/uL Sodium 134 L (136-148) mmol/L Potassium 5.0 (3.5-5.1) mmol/L Chloride 100 (98-107) mmol/L Carbon Dioxide 25.8 (21.0-32.0) mmol/L BUN 20 H (7.0-18.0) mg/dL Creatinine 1.5 H (0.8-1.3) mg/dL Est Cr Clr Drug Dosing 51.09 mL/min Estimated GFR (MDRD) 46.4 ml/min Glucose 122 H (74-106) mg/dL POC Glucose (70-99) mg/dL Hemoglobin A1c 7.1 H (4.5 - 6.2) % Calcium 8.4 L (8.5-10.1) mg/dL Total Bilirubin (0.2-1.0) mg/dL AST (15-37) IU/L ALT (14-63) IU/L Alkaline Phosphatase (46-116) U/L Total Protein (6.4-8.2) g/dL Albumin (3.4-5.0) g/dL Globulin (2.6-4.0) g/dL Albumin/Globulin Ratio (0.9-1.6) Triglycerides 102 (0-200) mg/dL Cholesterol 168 (50-200) mg/dL LDL Cholesterol, Calc 99 (60-180) mg/dL VLDL Cholesterol 20 (5-55) mg/dL HDL Cholesterol 49 (40-60) mg/dL Cholesterol/HDL Ratio 3.4 (3.3-6.0) 08/31/20 08/31/20 08/31/20 Range/Units 07:41 11:25 17:26 WBC (4.0-11.0) K/uL RBC (4.50-5.90) M/uL Hgb (13.0-17.0) g/dL Hct (38.0-50.0) % MCV (80.0-98.0) fL MCH (27.0-32.0) pg MCHC (31.0-37.0) g/dL RDW Std Deviation (28.0-62.0) fl RDW Coeff of Oscar (11.0-15.0) % Plt Count (150-400) K/uL MPV (7.40-12.00) fL Neut % (Auto) (48.0-80.0) % Lymph % (Auto) (16.0-40.0) % Mellette % (Auto) (0.0-15.0) % Eos % (Auto) (0.0-7.0) % Baso % (Auto) (0.0-1.5) % Neut # (Auto) (1.4-5.7) K/uL Lymph # (Auto) (0.6-2.4) K/uL Mellette # (Auto) (0.0-0.8) K/uL Eos # (Auto) (0.0-0.7) K/uL Baso # (Auto) (0.0-0.1) K/uL Nucleated RBC % /100WBC Nucleated RBCs # K/uL Sodium (136-148) mmol/L Potassium (3.5-5.1) mmol/L Chloride (98-107) mmol/L Carbon Dioxide (21.0-32.0) mmol/L BUN (7.0-18.0) mg/dL Creatinine (0.8-1.3) mg/dL Est Cr Clr Drug Dosing mL/min Estimated GFR (MDRD) ml/min Glucose (74-106) mg/dL POC Glucose 108 H 202 H 162 H (70-99) mg/dL Hemoglobin A1c (4.5 - 6.2) % Calcium (8.5-10.1) mg/dL Total Bilirubin (0.2-1.0) mg/dL AST (15-37) IU/L ALT (14-63) IU/L Alkaline Phosphatase (46-116) U/L Total Protein (6.4-8.2) g/dL Albumin (3.4-5.0) g/dL Globulin (2.6-4.0) g/dL Albumin/Globulin Ratio (0.9-1.6) Triglycerides (0-200) mg/dL Cholesterol (50-200) mg/dL LDL Cholesterol, Calc (60-180) mg/dL VLDL Cholesterol (5-55) mg/dL HDL Cholesterol (40-60) mg/dL Cholesterol/HDL Ratio (3.3-6.0) Result Diagrams: 08/31/20 05:15 08/31/20 05:15 Lavell Results Last 24 hrs: Microbiology 08/31/20 00:15 Anaerobic Blood Culture - Final Blood - Venous Sepsis Event Note - Focused Exam Vital Signs: Vital Signs Temp Pulse Pulse Resp BP BP Pulse Ox 08/31/20 17:55 36.6 C 81 18 146/77 H 95 08/31/20 15:17 146/77 H 08/31/20 15:16 85 146/77 H 08/31/20 13:41 36.5 C 79 19 148/77 H 96 08/31/20 09:32 36.6 C 75 18 153/81 H 95 Orders Last 24hrs: Active Orders 24 hr Category Date Time Status Patient Status [ADT] Routine ADT 08/31/20 01:14 Active Accu Check [Blood Glucose Check, Bedside] [RC] TIDAC Care 08/31/20 07:30 Active Ambulate [RC] ASDIRECTED Care 08/31/20 03:08 Active Oxygen Therapy [RC] ASDIRECTED Care 08/31/20 03:08 Active Vital Signs [RC] Q4H Care 08/31/20 07:00 Active [place] [employer] Diet [DIET] Diet 08/31/20 Breakfast Active BASIC METABOLIC PANEL,BMP [CHEM] AM Lab 09/01/20 05:11 Ordered CBC WITH AUTO DIFF [HEME] AM Lab 09/01/20 05:11 Ordered CULTURE BLOOD [BC] Stat Lab 08/30/20 23:22 Received CULTURE BLOOD [BC] Stat Lab 08/30/20 23:22 Results CULTURE, ANAEROBE & AEROBE [MREF] Stat Lab 08/31/20 00:50 Received TSH REFLEX TO FREE T4 [CHEM] AM Lab 09/01/20 05:11 Ordered VANCOMYCIN TROUGH [CHEM] Timed Lab 09/03/20 02:30 Ordered Acetaminophen [TylenoL] Med 08/31/20 03:04 Active 650 mg PO Q4H PRN Dextrose 50% in Water Med 08/31/20 03:09 Active 50 ml IVPUSH ASDIRECTED PRN Enalapril [Vasotec] Med 08/31/20 15:00 Active 10 mg PO DAILY Glucagon,Human Recombinant [GlucaGen] Med 08/31/20 03:09 Active 1 mg IM ASDIRECTED PRN Heparin Sodium Med 08/31/20 08:00 Active 5,000 units SUBCUT Q8H Insulin Aspart [NovoLOG] Med 08/31/20 07:30 Active See Protocol SUBCUT TIDAC Metoprolol Tartrate [Lopressor] Med 08/31/20 15:00 Active 25 mg PO BID Morphine Med 08/31/20 03:02 Active 2 mg IVPUSH Q4H PRN Pantoprazole [ProTONIX] Med 09/01/20 07:30 Active 40 mg PO ACBREAKFAST Pharmacy to Dose - Vancomycin Med 08/31/20 03:15 Active 1 dose .XX ASDIRECTED Piperacillin/Tazobactam [Piperacil-Tazobact] 3.375 gm Med 08/31/20 21:00 Active Sodium Chloride 0.9% [Normal Saline] 100 ml IV Q8H Simvastatin [Zocor] Med 08/31/20 21:00 Active 20 mg PO BEDTIME Sodium Chloride 0.9% [Saline Flush] Med 08/30/20 23:21 Active 10 ml FLUSH ASDIRECTED PRN Sodium Chloride 0.9% [Saline Flush] Med 08/30/20 23:21 Active 2.5 ml FLUSH ASDIRECTED PRN VANCOmycin 1.5 GM/300 ML 1.5 gm Med 08/31/20 03:30 Active Premix Bag 1 bag IV Q24H Blood Culture x2 Reflex Set [OM.PC] Stat Oth 08/30/20 23:21 Ordered Saline Lock Insert [OM.PC] Stat Oth 08/30/20 23:21 Ordered Medication Orders Acetaminophen (Acetaminophen 325 Mg Tab) 650 mg PO Q4H PRN PRN Reason: Pain (mild 1-3) Dextrose/Water (50% Dextrose In Water 50 Ml Syringe) 50 ml IVPUSH ASDIRECTED PRN PRN Reason: Hypoglycemia Enalapril Maleate (Enalapril 10 Mg Tab) 10 mg PO DAILY [facility] Last Admin: 08/31/20 15:17 Dose: 10 mg Documented by: ABDIAS Glucagon (Glucagon,Human Recombinant 1 Mg Vial) 1 mg IM ASDIRECTED PRN PRN Reason: Hypoglycemia Heparin Sodium (Porcine) (Heparin Sodium 5,000 Units/Ml Vial) 5,000 units SUB CUT Q8H [facility] Last Admin: 08/31/20 15:16 Dose: 5,000 units Documented by: Admin: 08/31/20 08:34 Dose: 5,000 units Documented by: ABDIAS Vancomycin HCl 1.5 gm/ Premix 300 mls @ 200 mls/hr IV Q24H [facility] Last Admin: 08/31/20 04:43 Dose: 200 mls/hr Documented by: KEENAN Piperacillin Sod/Tazobactam (Sod 3.375 gm/ Sodium Chloride) 100 mls @ 200 mls/hr IV Q8H [facility] Insulin Aspart (Insulin Aspart 100 Units/Ml 3 Ml Pen) 0 unit SUBCUT TIDAC RADHA; Protocol Last Admin: 08/31/20 17:42 Dose: Not Given Documented by: Admin: 08/31/20 11:35 Dose: 2 units Documented by: Admin: 08/31/20 07:50 Dose: Not Given Documented by: ABDIAS Metoprolol Tartrate (Metoprolol Tartrate 25 Mg Tab) 25 mg PO BID [facility] Last Admin: 08/31/20 15:16 Dose: 25 mg Documented by: ABDIAS Morphine Sulfate (Morphine 2 Mg/Ml Syringe) 2 mg IVPUSH Q4H PRN PRN Reason: Pain (severe 7-10) Last Admin: 08/31/20 15:27 Dose: 2 mg Documented by: Admin: 08/31/20 08:47 Dose: 2 mg Documented by: Admin: 08/31/20 03:35 Dose: 2 mg Documented by: KEENAN Pantoprazole Sodium (Pantoprazole 40 Mg Tab.Cr) 40 mg PO ACBREAKFAST [facility] Simvastatin (Simvastatin 20 Mg Tab) 20 mg PO BEDTIME [facility] Sodium Chloride (Sodium Chloride 0.9% 10 Ml Syringe) 10 ml FLUSH ASDIRECTED PRN PRN Reason: Keep Vein Open Last Admin: 08/31/20 00:04 Dose: 10 ml Documented by: JIM Sodium Chloride (Sodium Chloride 0.9% 2.5 Ml Syringe) 2.5 ml FLUSH ASDIRECTED PRN PRN Reason: Keep Vein Open Last Admin: 08/31/20 00:04 Dose: 2.5 ml Documented by: JIM Vancomycin HCl (Pharmacy To Dose - Vancomycin) 1 dose .XX ASDIRECTED [facility] Assessment/Plan Comment:: I performed a history and physical exam of the patient and discussed management with resident. I have reviewed the residents note and agree with documented findings and plan unless otherwise specified in my note.
[2020-08-31] MEDS: Insulin Aspart 100 Units/ML 3 ML Pen SUBCUT SCH ×3 (07:50→17:42)
[2020-08-31] MEDS: Heparin Sodium 5,000 Units/ML Vial SUBCUT SCH ×3 (08:34→23:24)
[2020-08-31] MEDS ORDERED: Piperacillin/Tazobactam 3.375 GM in Sodium Chloride 0.9% 50 ML IV SCH ×2 (12:15→12:45)
--- NOTE | 2020-08-31 12:43 | CR ---
Indication: Pain, swelling Comparison: None available. Technique: Standing AP, lateral, and sunrise views left knee were obtained Findings: There is no displaced fracture or dislocation. There is mild medial compartmental joint space narrowing with minimal tibial spine spurring. There is marked superficial prepatellar and infrapatellar soft tissue swelling. Impression: Marked superficial prepatellar and infrapatellar soft tissue swelling without evidence of acute osseous abnormality. Dictated by Farzad Hussein MD @ 08/31/2020 12:42:[address] Farzad Hussein @ Aug 31 2020 12:42PM
[2020-08-31 13:59] LABS: HEMOGLOBIN A1C 7.1 %
[2020-08-31] MEDS ORDERED: metFORMIN 500 MG Tab PO SCH (15:00)
[2020-08-31] MEDS ORDERED: Sodium Chloride 0.9% 500 ML IV ONE (15:00)
[2020-08-31] MEDS: Metoprolol Tartrate 25 MG Tab PO SCH ×2 (15:16→20:40)
[2020-08-31] MEDS: Simvastatin 20 MG Tab PO SCH (20:39)
[2020-08-31] MEDS: Piperacillin/Tazobactam 3.375 GM in Sodium Chloride 0.9% 100 ML IV SCH (20:39)
[2020-09-01] MEDS: Morphine 2 MG/ML SYRINGE IVPUSH PRN ×3 (03:21→13:58)
[2020-09-01] MEDS: VANCOmycin 1.5 GM/300 ML 1.5 GM in Premix Bag 1 BAG IV SCH (03:26)
[2020-09-01] MEDS: Piperacillin/Tazobactam 3.375 GM in Sodium Chloride 0.9% 100 ML IV SCH ×3 (05:16→21:07)
[2020-09-01 05:55] LABS: CARBON DIOXIDE,CO2 23.7 mmol/L (21.0-32.0); POTASSIUM,K 4.6 mmol/L (3.5-5.1)
[2020-09-01] MEDS: Pantoprazole 40 MG Tab.CR PO SCH (06:39)
[2020-09-01] MEDS: Insulin Aspart 100 Units/ML 3 ML Pen SUBCUT SCH ×3 (06:51→17:55)
[2020-09-01] MEDS: Sodium Chloride 0.9% 1,000 ML IV SCH ×2 (08:07→18:46)
[2020-09-01] MEDS: Metoprolol Tartrate 25 MG Tab PO SCH ×2 (08:18→21:20)
[2020-09-01] MEDS: Heparin Sodium 5,000 Units/ML Vial SUBCUT SCH ×3 (08:18→23:20)
[2020-09-01] MEDS ORDERED: Acetaminophen/Codeine 300-30 MG Tab PO PRN (15:28)
--- NOTE | 2020-09-01 17:16 | PCM.PN ---
- General Info Date of Service: 09/01/20 Subjective Update: Patient states leg feels the same as yesterday. Patient still states moderate to severe pain with flexion and movement of the left knee. Patient still states difficulty walking. Patient denies fever, chills, states decreased redness and swelling of the left knee. - Review of Systems General: Reports: Chills. Denies: Fever Pulmonary: Denies: Shortness of Breath, Pleuritic Chest Pain, Cough Cardiovascular: Denies: Chest Pain, Palpitations, Dyspnea on Exertion Gastrointestinal: Denies: Abdominal Pain, Constipation, Nausea, Vomiting Musculoskeletal: Reports: Other (left knee pain) - Patient Data Vitals - Most Recent: Last Vital Signs Temp 99.3 F 09/01/20 16:00 Pulse 74 09/01/20 16:00 Resp 20 09/01/20 16:00 BP 169/84 H 09/01/20 16:00 Pulse Ox 95 09/01/20 16:00 Weight - Most Recent: 238 lb I&O - Last 24 Hours: Intake & Output 09/01/20 09/01/20 09/01/20 06:59 14:59 22:59 Intake Total 460 1440 Output Total 1250 1750 Balance -790 -310 Lab Results Last 24 Hours: Laboratory Results - last 24 hr 08/31/20 09/01/20 09/01/20 Range/Units 17:26 04:54 04:54 WBC 9.53 (4.0-11.0) K/uL RBC 4.86 (4.50-5.90) M/uL Hgb 14.8 (13.0-17.0) g/dL Hct 43.6 (38.0-50.0) % MCV 89.7 (80.0-98.0) fL MCH 30.5 (27.0-32.0) pg MCHC 33.9 (31.0-37.0) g/dL RDW Std Deviation 45.5 (28.0-62.0) fl RDW Coeff of Oscar 14 (11.0-15.0) % Plt Count 259 (150-400) K/uL MPV 10.20 (7.40-12.00) fL Neut % (Auto) 72.9 (48.0-80.0) % Lymph % (Auto) 10.8 L (16.0-40.0) % [place] % (Auto) 12.2 (0.0-15.0) % Eos % (Auto) 3.9 (0.0-7.0) % Baso % (Auto) 0.2 (0.0-1.5) % Neut # (Auto) 7.0 H (1.4-5.7) K/uL Lymph # (Auto) 1.0 (0.6-2.4) K/uL [place] # (Auto) 1.2 H (0.0-0.8) K/uL Eos # (Auto) 0.4 (0.0-0.7) K/uL Baso # (Auto) 0.0 (0.0-0.1) K/uL Nucleated RBC % 0.0 /100WBC Nucleated RBCs # 0 K/uL Sodium 132 L (136-148) mmol/L Potassium 4.6 (3.5-5.1) mmol/L Chloride 99 (98-107) mmol/L Carbon Dioxide 23.7 (21.0-32.0) mmol/L BUN 23 H (7.0-18.0) mg/dL Creatinine 1.5 H (0.8-1.3) mg/dL Est Cr Clr Drug Dosing 51.09 mL/min Estimated GFR (MDRD) 46.4 ml/min Glucose 156 H (74-106) mg/dL POC Glucose 162 H (70-99) mg/dL Calcium 8.5 (8.5-10.1) mg/dL TSH, Ultra Sensitive 2.57 (0.36-3.74) uIU/mL 09/01/20 09/01/20 Range/Units 06:33 11:42 WBC (4.0-11.0) K/uL RBC (4.50-5.90) M/uL Hgb (13.0-17.0) g/dL Hct (38.0-50.0) % MCV (80.0-98.0) fL MCH (27.0-32.0) pg MCHC (31.0-37.0) g/dL RDW Std Deviation (28.0-62.0) fl RDW Coeff of Oscar (11.0-15.0) % Plt Count (150-400) K/uL MPV (7.40-12.00) fL Neut % (Auto) (48.0-80.0) % Lymph % (Auto) (16.0-40.0) % [place] % (Auto) (0.0-15.0) % Eos % (Auto) (0.0-7.0) % Baso % (Auto) (0.0-1.5) % Neut # (Auto) (1.4-5.7) K/uL Lymph # (Auto) (0.6-2.4) K/uL [place] # (Auto) (0.0-0.8) K/uL Eos # (Auto) (0.0-0.7) K/uL Baso # (Auto) (0.0-0.1) K/uL Nucleated RBC % /100WBC Nucleated RBCs # K/uL Sodium (136-148) mmol/L Potassium (3.5-5.1) mmol/L Chloride (98-107) mmol/L Carbon Dioxide (21.0-32.0) mmol/L BUN (7.0-18.0) mg/dL Creatinine (0.8-1.3) mg/dL Est Cr Clr Drug Dosing mL/min Estimated GFR (MDRD) ml/min Glucose (74-106) mg/dL POC Glucose 134 H 192 H (70-99) mg/dL Calcium (8.5-10.1) mg/dL TSH, Ultra Sensitive (0.36-3.74) uIU/mL [facility] Results Last 24 Hours: Microbiology 08/31/20 00:50 Gram Stain - Final Wound 08/31/20 00:20 Aerobic Blood Culture - Preliminary Blood - Venous - Lab Draw NO GROWTH AFTER 1 DAY Anaerobic Blood Culture - Preliminary NO GROWTH AFTER 1 DAY 08/31/20 00:15 Aerobic Blood Culture - Preliminary Blood - Venous NO GROWTH AFTER 1 DAY Anaerobic Blood Culture - Final Med Orders - Current: Current Medications Acetaminophen (Acetaminophen 325 Mg Tab) 650 mg PO Q4H PRN PRN Reason: Pain (mild 1-3) Acetaminophen/Codeine Phosphate (Acetaminophen/Codeine 300-30 Mg Tab) 1 tab PO Q4H PRN PRN Reason: Pain/Fever Dextrose/Water (50% Dextrose In Water 50 Ml Syringe) 50 ml IVPUSH ASDIRECTED PRN PRN Reason: Hypoglycemia Enalapril Maleate (Enalapril 10 Mg Tab) 10 mg PO DAILY [facility] Last Admin: 09/01/20 08:17 Dose: 10 mg Documented by: Glucagon (Glucagon,Human Recombinant 1 Mg Vial) 1 mg IM ASDIRECTED PRN PRN Reason: Hypoglycemia Heparin Sodium (Porcine) (Heparin Sodium 5,000 Units/Ml Vial) 5,000 units DIAMOND BCUT Q8H [facility] Last Admin: 09/01/20 16:15 Dose: 5,000 units Documented by: Vancomycin HCl 1.5 gm/ Premix 300 mls @ 200 mls/hr IV Q24H [facility] Last Admin: 09/01/20 03:26 Dose: 200 mls/hr Documented by: Piperacillin Sod/Tazobactam (Sod 3.375 gm/ Sodium Chloride) 100 mls @ 200 mls/hr IV Q8H [facility] Last Admin: 09/01/20 12:28 Dose: 200 mls/hr Documented by: Sodium Chloride (Normal Saline) 1,000 mls @ 125 mls/hr IV ASDIRECTED [facility] Last Admin: 09/01/20 08:07 Dose: 125 mls/hr Documented by: Insulin Aspart (Insulin Aspart 100 Units/Ml 3 Ml Pen) 0 unit SUBCUT TIDAC [facility]; Protocol Last Admin: 09/01/20 12:30 Dose: 1 units Documented by: Metoprolol Tartrate (Metoprolol Tartrate 25 Mg Tab) 25 mg PO BID [facility] Last Admin: 09/01/20 08:18 Dose: 25 mg Documented by: Morphine Sulfate (Morphine 2 Mg/Ml Syringe) 2 mg IVPUSH Q4H PRN PRN Reason: Pain (severe 7-10) Last Admin: 09/01/20 13:58 Dose: 2 mg Documented by: Pantoprazole Sodium (Pantoprazole 40 Mg Tab.Cr) 40 mg PO ACBREAKFAST [facility] Last Admin: 09/01/20 06:39 Dose: 40 mg Documented by: Simvastatin (Simvastatin 20 Mg Tab) 20 mg PO BEDTIME [facility] Last Admin: 08/31/20 20:39 Dose: 20 mg Documented by: Sodium Chloride (Sodium Chloride 0.9% 10 Ml Syringe) 10 ml FLUSH ASDIRECTED PRN PRN Reason: Keep Vein Open Last Admin: 08/31/20 00:04 Dose: 10 ml Documented by: Sodium Chloride (Sodium Chloride 0.9% 2.5 Ml Syringe) 2.5 ml FLUSH ASDIRECTED PRN PRN Reason: Keep Vein Open Last Admin: 08/31/20 00:04 Dose: 2.5 ml Documented by: Vancomycin HCl (Pharmacy To Dose - Vancomycin) 1 dose .XX ASDIRECTED [facility] Discontinued Medications Enalapril Maleate (Enalapril 10 Mg Tab) 10 mg PO DAILY [facility] Last Admin: 08/31/20 15:17 Dose: 10 mg Documented by: Sodium Chloride (Normal Saline) 1,000 mls @ 999 mls/hr IV .Bolus ONE Stop: 08/31/20 00:21 Last Admin: 08/31/20 00:04 Dose: 999 mls/hr Documented by: Clindamycin Phosphate 600 mg/ (Premix) 50 mls @ 100 mls/hr IV ONETIME ONE Stop: 08/30/20 23:50 Last Admin: 08/31/20 00:05 Dose: 100 mls/hr Documented by: Lactated Ringer's (Ringers, Lactated) 1,000 mls @ 125 mls/hr IV ASDIRECTED [facility] Last Admin: 08/31/20 07:00 Dose: 125 mls/hr Documented by: Piperacillin Sod/Tazobactam (Sod 3.375 gm/ Sodium Chloride) 50 mls @ 100 mls/hr IV Q8H [facility] Last Admin: 08/31/20 14:06 Dose: Not Given Documented by: Piperacillin Sod/Tazobactam (Sod 3.375 gm/ Sodium Chloride) 50 mls @ 100 mls/hr IV Q8H [facility] Last Admin: 08/31/20 14:06 Dose: Not Given Documented by: Piperacillin Sod/Tazobactam (Sod 3.375 gm/ Sodium Chloride) 50 mls @ 100 mls/hr IV Q8H [facility] Last Admin: 08/31/20 13:01 Dose: 100 mls/hr Documented by: Sodium Chloride (Normal Saline) 500 mls @ 125 mls/hr IV ONETIME ONE Stop: 08/31/20 18:59 Last Admin: 08/31/20 17:00 Dose: 125 mls/hr Documented by: Lidocaine/Epinephrine (Lidocaine 1% With Epinephrine 1:100,000 20 Ml Mdv) 20 ml INJECT ONETIME ONE Stop: 08/31/20 00:14 Last Admin: 08/31/20 00:20 Dose: 20 ml Documented by: Metformin HCl (Metformin 500 Mg Tab) 500 mg PO DAILY [facility] Last Admin: 08/31/20 19:20 Dose: Not Given Documented by: Morphine Sulfate (Morphine 4 Mg/Ml Syringe) 4 mg IVPUSH ONETIME ONE Stop: 08/30/20 23:22 Last Admin: 08/31/20 00:05 Dose: 4 mg Documented by: Morphine Sulfate (Morphine 4 Mg/Ml Syringe) 4 mg IVPUSH ONETIME ONE Stop: 08/31/20 00:37 Last Admin: 08/31/20 00:55 Dose: Not Given Documented by: Morphine Sulfate (Morphine 4 Mg/Ml Syringe) 4 mg IVPUSH ONETIME ONE Stop: 08/31/20 00:40 Last Admin: 08/31/20 00:51 Dose: 4 mg Documented by: - Exam General: Alert, Oriented Lungs: Clear to Auscultation, Normal Respiratory Effort Cardiovascular: Regular Rate, Regular Rhythm GI/Abdominal Exam: Soft, Non-Tender Extremities: No Pedal Edema, Joint Swelling (left knee, improving) - Patient Data Lab Results Last 24 hrs: Laboratory Results - last 24 hr 08/31/20 09/01/20 09/01/20 Range/Units 17:26 04:54 04:54 WBC 9.53 (4.0-11.0) K/uL RBC 4.86 (4.50-5.90) M/uL Hgb 14.8 (13.0-17.0) g/dL Hct 43.6 (38.0-50.0) % MCV 89.7 (80.0-98.0) fL MCH 30.5 (27.0-32.0) pg MCHC 33.9 (31.0-37.0) g/dL RDW Std Deviation 45.5 (28.0-62.0) fl RDW Coeff of Oscar 14 (11.0-15.0) % Plt Count 259 (150-400) K/uL MPV 10.20 (7.40-12.00) fL Neut % (Auto) 72.9 (48.0-80.0) % Lymph % (Auto) 10.8 L (16.0-40.0) % [place] % (Auto) 12.2 (0.0-15.0) % Eos % (Auto) 3.9 (0.0-7.0) % Baso % (Auto) 0.2 (0.0-1.5) % Neut # (Auto) 7.0 H (1.4-5.7) K/uL Lymph # (Auto) 1.0 (0.6-2.4) K/uL [place] # (Auto) 1.2 H (0.0-0.8) K/uL Eos # (Auto) 0.4 (0.0-0.7) K/uL Baso # (Auto) 0.0 (0.0-0.1) K/uL Nucleated RBC % 0.0 /100WBC Nucleated RBCs # 0 K/uL Sodium 132 L (136-148) mmol/L Potassium 4.6 (3.5-5.1) mmol/L Chloride 99 (98-107) mmol/L Carbon Dioxide 23.7 (21.0-32.0) mmol/L BUN 23 H (7.0-18.0) mg/dL Creatinine 1.5 H (0.8-1.3) mg/dL Est Cr Clr Drug Dosing 51.09 mL/min Estimated GFR (MDRD) 46.4 ml/min Glucose 156 H (74-106) mg/dL POC Glucose 162 H (70-99) mg/dL Calcium 8.5 (8.5-10.1) mg/dL TSH, Ultra Sensitive 2.57 (0.36-3.74) uIU/mL 09/01/20 09/01/20 Range/Units 06:33 11:42 WBC (4.0-11.0) K/uL RBC (4.50-5.90) M/uL Hgb (13.0-17.0) g/dL Hct (38.0-50.0) % MCV (80.0-98.0) fL MCH (27.0-32.0) pg MCHC (31.0-37.0) g/dL RDW Std Deviation (28.0-62.0) fl RDW Coeff of [place] (11.0-15.0) % Plt Count (150-400) K/uL MPV (7.40-12.00) fL Neut % (Auto) (48.0-80.0) % Lymph % (Auto) (16.0-40.0) % [place] % (Auto) (0.0-15.0) % Eos % (Auto) (0.0-7.0) % Baso % (Auto) (0.0-1.5) % Neut # (Auto) (1.4-5.7) K/uL Lymph # (Auto) (0.6-2.4) K/uL [place] # (Auto) (0.0-0.8) K/uL Eos # (Auto) (0.0-0.7) K/uL Baso # (Auto) (0.0-0.1) K/uL Nucleated RBC % /100WBC Nucleated RBCs # K/uL Sodium (136-148) mmol/L Potassium (3.5-5.1) mmol/L Chloride (98-107) mmol/L Carbon Dioxide (21.0-32.0) mmol/L BUN (7.0-18.0) mg/dL Creatinine (0.8-1.3) mg/dL Est Cr Clr Drug Dosing mL/min Estimated GFR (MDRD) ml/min Glucose (74-106) mg/dL POC Glucose 134 H 192 H (70-99) mg/dL Calcium (8.5-10.1) mg/dL TSH, Ultra Sensitive (0.36-3.74) uIU/mL Result Diagrams: 09/02/20 05:40 09/02/20 05:40 [facility] Results Last 24 hrs: Microbiology 08/31/20 00:50 Gram Stain - Final Wound 08/31/20 00:20 Aerobic Blood Culture - Preliminary Blood - Venous - Lab Draw NO GROWTH AFTER 1 DAY Anaerobic Blood Culture - Preliminary NO GROWTH AFTER 1 DAY 08/31/20 00:15 Aerobic Blood Culture - Preliminary Blood - Venous NO GROWTH AFTER 1 DAY Anaerobic Blood Culture - Final Sepsis Event Note - Evaluation Sepsis Screening Result: No Definite Risk - Focused Exam Vital Signs: Vital Signs Temp Pulse Pulse Resp BP BP Pulse Ox 09/01/20 16:00 99.3 F 74 20 169/84 H 95 09/01/20 12:00 76 20 144/83 H 92 L 09/01/20 08:18 77 151/81 H 09/01/20 08:17 151/81 H 09/01/20 08:13 99.2 F 80 18 151/81 H 92 L 09/01/20 06:50 176/81 H - Problem List & Annotations (1) Left knee pain SNOMED Code(s): 6171763695 Code(s): M25.562 - PAIN IN LEFT KNEE Status: Acute Current Visit: Yes (2) Diabetes mellitus SNOMED Code(s): 17247984 Code(s): E11.9 - TYPE 2 DIABETES MELLITUS WITHOUT COMPLICATIONS Status: Acute Current Visit: Yes (3) Hypertension SNOMED Code(s): 12832336 Code(s): I10 - ESSENTIAL (PRIMARY) HYPERTENSION Status: Acute Current Visit: Yes (4) Cellulitis SNOMED Code(s): 333254057 Code(s): L03.90 - CELLULITIS, UNSPECIFIED Status: Acute Current Visit: Yes Qualifiers: Site of cellulitis: extremity Site of cellulitis of extremity: lower extremity Laterality: left Qualified Code(s): L03.116 - Cellulitis of left lower limb - Problem List Review Problem List Initiated/Reviewed/Updated: Yes - My Orders Last 24 Hours: My Active Orders 08/31/20 21:00 Simvastatin [Zocor] 20 mg PO BEDTIME 09/01/20 07:30 Pantoprazole [ProTONIX] 40 mg PO ACBREAKFAST 09/01/20 07:45 Sodium Chloride 0.9% [Normal Saline] 1,000 ml IV ASDIRECTED 09/01/20 09:00 Enalapril [Vasotec] 10 mg PO DAILY 09/01/20 15:28 Acetaminophen/Codeine [Tylenol with Codeine No.3 300MG/30MG] 1 tab PO Q4H PRN - Plan Plan:: Cellulitis left knee-vancomycin, Zosyn every 8 hours, patient transitioned to norco for pain Diastases rectiper documentation, CT abdomen 2018 revealed no abdominal hernia. Patient states chronic history of condition and he has seen a surgeon for evalu ation. No surgery warranted at this time. Diabetesdiabetic diet, insulin sliding scale low-dose Hypertensionenalapril, metoprolol tartrate
[2020-09-01] MEDS ORDERED: Acetaminophen/HYDROcodone 325-5 MG Tab PO PRN (17:47)
[2020-09-01] MEDS: Simvastatin 20 MG Tab PO SCH (21:06)
[2020-09-01] MEDS: Acetaminophen/HYDROcodone 325-10 MG Tab PO PRN (23:20)
[2020-09-02] MEDS: Acetaminophen/HYDROcodone 325-10 MG Tab PO PRN ×2 (04:06→13:18)
[2020-09-02] MEDS: VANCOmycin 1.5 GM/300 ML 1.5 GM in Premix Bag 1 BAG IV SCH (04:09)
[2020-09-02] MEDS: Sodium Chloride 0.9% 1,000 ML IV SCH (04:11)
[2020-09-02] MEDS: Piperacillin/Tazobactam 3.375 GM in Sodium Chloride 0.9% 100 ML IV SCH ×2 (06:08→12:24)
[2020-09-02 06:46] LABS: CARBON DIOXIDE,CO2 23.8 mmol/L (21.0-32.0); POTASSIUM,K 4.7 mmol/L (3.5-5.1)
[2020-09-02] MEDS: Insulin Aspart 100 Units/ML 3 ML Pen SUBCUT SCH (07:25)
[2020-09-02] MEDS: Pantoprazole 40 MG Tab.CR PO SCH (07:43)
[2020-09-02 08:32] VITALS: BP 169/78; PULSE 69
[2020-09-02] MEDS: Heparin Sodium 5,000 Units/ML Vial SUBCUT SCH (08:34)
[2020-09-02] MEDS: Metoprolol Tartrate 25 MG Tab PO SCH (08:36)
--- NOTE | 2020-09-02 21:42 | PCM.DCSUM1 ---
Discharge Summary - Hospital Course Free Text/Narrative:: 69-year-old male presented to emergency department yesterday due to worsening left knee pain with movement, tenderness, redness, swelling. Patient was seen by a primary care provider 3 days prior, diagnosed with cellulitis, and was started on oral Keflex and Bactrim which he was complaint with. Patient states the pain and redness of the left knee increased over the weekend limiting mobility. Past has a past medical history of hypertension, diabetes. Upon admission patient had no symptoms of fever, chest pain, shortness of breath, nausea, vomiting. He states an x-ray of the knee at PCP visit which was unremarkable in addition to an ultrasound which did not reveal evidence of DVT or abscess. I&D performed in the ED revealed no purulent discharge, some serosanguineous drainage noted. Drainage was sent for culture. Left knee x-ray during admission revealed, superficial prepatellar and infrapatellar soft tissue swelling without evidence of acute osseous abnormality. WBC 11.58. Patient started on vancomycin, Zosyn every 8hr, morphine for pain. Patient treated with IV Vancomycin and Zosyn. Pain management included IV morphine and [place]. Patient discharged home on Augmentin, Doxycycline, [place] 325/10. - Discharge Data Discharge Date: 09/02/20 Discharge Disposition: Home, Self-Care 01 Condition: Stable - Referral to Home Health Primary Care Physician: Scott Bullard MD - Discharge Diagnosis/Problem(s) (1) Left knee pain SNOMED Code(s): 7379747091 ICD Code: M25.562 - PAIN IN LEFT KNEE Status: Acute (2) Diabetes mellitus SNOMED Code(s): 94552253 ICD Code: E11.9 - TYPE 2 DIABETES MELLITUS WITHOUT COMPLICATIONS Status: Acute (3) Hypertension SNOMED Code(s): 37620530 ICD Code: I10 - ESSENTIAL (PRIMARY) HYPERTENSION Status: Acute (4) Cellulitis SNOMED Code(s): 134993834 ICD Code: L03.90 - CELLULITIS, UNSPECIFIED Status: Acute Qualifiers: Site of cellulitis: extremity Site of cellulitis of extremity: lower extremity Laterality: left Qualified Code(s): L03.116 - Cellulitis of left lower limb - Patient Summary/Data Consults: Consultations 09/02/20 07:13 Consult to Physical Therapy [PT Evaluation and Treatment] [CONS] Routine - Patient Instructions Diet: Diabetic Diet Activity: As Tolerated Notify Provider of: Increased Pain, Swelling and Redness, Drainage Other/Special Instructions: REPORT ANY INCREASED PAIN, SWELLING, REDNESS, FEVER TO PCP. REPORT TO ED IF EXPERIENCING SEVERE PAIN INCREASED REDNESS AND SWELLING. - Discharge Plan *PRESCRIPTION DRUG MONITORING PROGRAM REVIEWED*: Not Applicable *COPY OF PRESCRIPTION DRUG MONITORING REPORT IN PATIENT SELVIN: Not Applicable Prescriptions/Med Rec: Amoxicillin/Potassium Clav [Augmentin 875-125 Tablet] 1 each PO BID #14 tablet Doxycycline Hyclate 100 mg PO BID #14 capsule Hydrocodone/Acetaminophen [HYDROcodone-Acetaminophen 10-325 MG] 1 each PO BID PRN #8 tablet PRN Reason: Pain Home Medications: Home Meds Enalapril Maleate 10 mg PO DAILY 01/01/16 [History] metFORMIN HCl [Metformin HCl] 500 mg PO DAILY 01/01/16 [History] Simvastatin [Zocor] 20 mg PO BEDTIME 02/03/17 [History] tadalafiL [Cialis] 5 mg PO DAILY 02/03/17 [History] Metoprolol Tartrate 25 mg PO BID 08/30/20 [History] Pantoprazole Sodium [Protonix] 40 mg PO DAILY 08/30/20 [History] Sildenafil [Revatio] 20 mg PO QID PRN 08/31/20 [History] Triamcinolone Acetonide [Triamcinolone Acetonide 0.1% Oint] 1 applic TOP BID PRN 08/31/20 [History] Amoxicillin/Potassium Clav [Augmentin 875-125 Tablet] 1 each PO BID #14 tablet 09/02/20 [Rx] Doxycycline Hyclate 100 mg PO BID #14 capsule 09/02/20 [Rx] Hydrocodone/Acetaminophen [HYDROcodone-Acetaminophen 10-325 MG] 1 each PO BID PRN #8 tablet 09/02/20 [Rx] Patient Handouts: Acetaminophen; Hydrocodone tablets or capsules, Amoxicillin; Clavulanic Acid Tablets, Cellulitis, Adult, Doxycycline tablets or capsules Referrals: Scott Bullard MD [Primary Care Provider] - 09/09/20 10:45 am - Discharge Summary/Plan Comment DC Time >30 min.: Yes - General Info Date of Service: 09/02/20 Subjective Update: Patient states reduced left knee pain, states that he is able to walk more comfortably and would like to go home. Denies fever, chills, nausea, vomiting. - Review of Systems General: Denies: Fever, Chills Pulmonary: Denies: Shortness of Breath, Cough Cardiovascular: Denies: Chest Pain, Dyspnea on Exertion Gastrointestinal: Denies: Abdominal Pain, Constipation, Diarrhea Musculoskeletal: Reports: Other (left knee pain improved since admission) Neurological: Denies: Confusion, Dizziness, Headache - Patient Data Vitals - Most Recent: Last Vital Signs Temp 97.3 F 09/02/20 08:00 Pulse 69 09/02/20 08:36 Resp 16 09/02/20 08:00 BP 169/78 H 09/02/20 08:36 Pulse Ox 94 L 09/02/20 08:00 Weight - Most Recent: 238 lb I&O - Last 24 hours: Intake & Output 09/02/20 09/02/20 09/02/20 06:59 14:59 22:59 Intake Total 1910 Output Total 1560 600 Balance 350 -600 Lab Results - Last 24 hrs: Laboratory Results - last 24 hr 09/02/20 09/02/20 09/02/20 Range/Units 05:40 05:40 06:36 WBC 8.12 (4.0-11.0) K/uL RBC 4.77 (4.50-5.90) M/uL Hgb 14.7 (13.0-17.0) g/dL Hct 42.8 (38.0-50.0) % MCV 89.7 (80.0-98.0) fL MCH 30.8 (27.0-32.0) pg MCHC 34.3 (31.0-37.0) g/dL RDW Std Deviation 45.1 (28.0-62.0) fl RDW Coeff of Oscar 14 (11.0-15.0) % Plt Count 260 (150-400) K/uL MPV 10.20 (7.40-12.00) fL Neut % (Auto) 65.1 (48.0-80.0) % Lymph % (Auto) 16.6 (16.0-40.0) % [place] % (Auto) 11.8 (0.0-15.0) % Eos % (Auto) 6.3 (0.0-7.0) % Baso % (Auto) 0.2 (0.0-1.5) % Neut # (Auto) 5.3 (1.4-5.7) K/uL Lymph # (Auto) 1.4 (0.6-2.4) K/uL [place] # (Auto) 1.0 H (0.0-0.8) K/uL Eos # (Auto) 0.5 (0.0-0.7) K/uL Baso # (Auto) 0.0 (0.0-0.1) K/uL Nucleated RBC % 0.0 /100WBC Nucleated RBCs # 0 K/uL Sodium 133 L (136-148) mmol/L Potassium 4.7 (3.5-5.1) mmol/L Chloride 101 (98-107) mmol/L Carbon Dioxide 23.8 (21.0-32.0) mmol/L BUN 22 H (7.0-18.0) mg/dL Creatinine 1.4 H (0.8-1.3) mg/dL Est Cr Clr Drug Dosing 54.73 mL/min Estimated GFR (MDRD) 50.2 ml/min Glucose 116 H (74-106) mg/dL POC Glucose 119 H (70-99) mg/dL Calcium 8.7 (8.5-10.1) mg/dL 09/02/20 Range/Units 12:09 WBC (4.0-11.0) K/uL RBC (4.50-5.90) M/uL Hgb (13.0-17.0) g/dL Hct (38.0-50.0) % MCV (80.0-98.0) fL MCH (27.0-32.0) pg MCHC (31.0-37.0) g/dL RDW Std Deviation (28.0-62.0) fl RDW Coeff of Oscar (11.0-15.0) % Plt Count (150-400) K/uL MPV (7.40-12.00) fL Neut % (Auto) (48.0-80.0) % Lymph % (Auto) (16.0-40.0) % [place] % (Auto) (0.0-15.0) % Eos % (Auto) (0.0-7.0) % Baso % (Auto) (0.0-1.5) % Neut # (Auto) (1.4-5.7) K/uL Lymph # (Auto) (0.6-2.4) K/uL [place] # (Auto) (0.0-0.8) K/uL Eos # (Auto) (0.0-0.7) K/uL Baso # (Auto) (0.0-0.1) K/uL Nucleated RBC % /100WBC Nucleated RBCs # K/uL Sodium (136-148) mmol/L Potassium (3.5-5.1) mmol/L Chloride (98-107) mmol/L Carbon Dioxide (21.0-32.0) mmol/L BUN (7.0-18.0) mg/dL Creatinine (0.8-1.3) mg/dL Est Cr Clr Drug Dosing mL/min Estimated GFR (MDRD) ml/min Glucose (74-106) mg/dL POC Glucose 157 H (70-99) mg/dL Calcium (8.5-10.1) mg/dL ALIA Results - Last 24 hrs: Microbiology 08/31/20 00:50 Aerobic Culture - Preliminary Wound Gram Positive Cocci Gram Stain - Final 08/31/20 00:20 Aerobic Blood Culture - Preliminary Blood - Venous - Lab Draw NO GROWTH AFTER 2 DAYS Anaerobic Blood Culture - Preliminary NO GROWTH AFTER 2 DAYS 08/31/20 00:15 Aerobic Blood Culture - Preliminary Blood - Venous NO GROWTH AFTER 2 DAYS Anaerobic Blood Culture - Final Med Orders - Current: Current Medications Discontinued Medications Acetaminophen (Acetaminophen 325 Mg Tab) 650 mg PO Q4H PRN PRN Reason: Pain (mild 1-3) Acetaminophen/Codeine Phosphate (Acetaminophen/Codeine 300-30 Mg Tab) 1 tab PO Q4H PRN PRN Reason: Pain/Fever Hydrocodone Bitart/Acetaminophen (Acetaminophen/Hydrocodone 325-5 Mg Tab) 1 tab PO Q4H PRN PRN Reason: Pain Last Admin: 09/01/20 18:45 Dose: 1 tab Documented by: Hydrocodone Bitart/Acetaminophen (Acetaminophen/Hydrocodone 325-10 Mg Tab) 1 tab PO Q4H PRN PRN Reason: Pain Last Admin: 09/02/20 13:18 Dose: 1 tab Documented by: Dextrose/Water (50% Dextrose In Water 50 Ml Syringe) 50 ml IVPUSH ASDIRECTED PRN PRN Reason: Hypoglycemia Enalapril Maleate (Enalapril 10 Mg Tab) 10 mg PO DAILY [facility] Last Admin: 08/31/20 15:17 Dose: 10 mg Documented by: Enalapril Maleate (Enalapril 10 Mg Tab) 10 mg PO DAILY [facility] Last Admin: 09/02/20 08:36 Dose: 10 mg Documented by: Glucagon (Glucagon,Human Recombinant 1 Mg Vial) 1 mg IM ASDIRECTED PRN PRN Reason: Hypoglycemia Heparin Sodium (Porcine) (Heparin Sodium 5,000 Units/Ml Vial) 5,000 units SUBCUT Q8H [facility] Last Admin: 09/02/20 08:34 Dose: 5,000 units Documented by: Sodium Chloride (Normal Saline) 1,000 mls @ 999 mls/hr IV .Bolus ONE Stop: 08/31/20 00:21 Last Admin: 08/31/20 00:04 Dose: 999 mls/hr Documented by: Clindamycin Phosphate 600 mg/ (Premix) 50 mls @ 100 mls/hr IV ONETIME ONE Stop: 08/30/20 23:50 Last Admin: 08/31/20 00:05 Dose: 100 mls/hr Documented by: Lactated Ringer's (Ringers, Lactated) 1,000 mls @ 125 mls/hr IV ASDIRECTED [facility] Last Admin: 08/31/20 07:00 Dose: 125 mls/hr Documented by: Piperacillin Sod/Tazobactam (Sod 3.375 gm/ Sodium Chloride) 50 mls @ 100 mls/hr IV Q8H [facility] Last Admin: 08/31/20 14:06 Dose: Not Given Documented by: Vancomycin HCl 1.5 gm/ Premix 300 mls @ 200 mls/hr IV Q24H [facility] Last Admin: 09/02/20 04:09 Dose: 200 mls/hr Documented by: Piperacillin Sod/Tazobactam (Sod 3.375 gm/ Sodium Chloride) 50 mls @ 100 mls/hr IV Q8H [facility] Last Admin: 08/31/20 14:06 Dose: Not Given Documented by: Piperacillin Sod/Tazobactam (Sod 3.375 gm/ Sodium Chloride) 50 mls @ 100 mls/hr IV Q8H [facility] Last Admin: 08/31/20 13:01 Dose: 100 mls/hr Documented by: Piperacillin Sod/Tazobactam (Sod 3.375 gm/ Sodium Chloride) 100 mls @ 200 mls/hr IV Q8H [facility] Last Admin: 09/02/20 12:24 Dose: 200 mls/hr Documented by: Sodium Chloride (Normal Saline) 500 mls @ 125 mls/hr IV ONETIME ONE Stop: 08/31/20 18:59 Last Admin: 08/31/20 17:00 Dose: 125 mls/hr Documented by: Sodium Chloride (Normal Saline) 1,000 mls @ 125 mls/hr IV ASDIRECTED [facility] Last Admin: 09/02/20 04:11 Dose: 125 mls/hr Documented by: Insulin Aspart (Insulin Aspart 100 Units/Ml 3 Ml Pen) 0 unit SUBCUT TIDAC [facility]; Protocol Last Admin: 09/02/20 07:25 Dose: Not Given Documented by: Lidocaine/Epinephrine (Lidocaine 1% With Epinephrine 1:100,000 20 Ml Mdv) 20 ml INJECT ONETIME ONE Stop: 08/31/20 00:14 Last Admin: 08/31/20 00:20 Dose: 20 ml Documented by: Metformin HCl (Metformin 500 Mg Tab) 500 mg PO DAILY [facility] Last Admin: 08/31/20 19:20 Dose: Not Given Documented by: Metoprolol Tartrate (Metoprolol Tartrate 25 Mg Tab) 25 mg PO BID [facility] Last Admin: 09/02/20 08:36 Dose: 25 mg Documented by: Morphine Sulfate (Morphine 4 Mg/Ml Syringe) 4 mg IVPUSH ONETIME ONE Stop: 08/30/20 23:22 Last Admin: 08/31/20 00:05 Dose: 4 mg Documented by: Morphine Sulfate (Morphine 4 Mg/Ml Syringe) 4 mg IVPUSH ONETIME ONE Stop: 08/31/20 00:37 Last Admin: 08/31/20 00:55 Dose: Not Given Documented by: Morphine Sulfate (Morphine 4 Mg/Ml Syringe) 4 mg IVPUSH ONETIME ONE Stop: 08/31/20 00:40 Last Admin: 08/31/20 00:51 Dose: 4 mg Documented by: Morphine Sulfate (Morphine 2 Mg/Ml Syringe) 2 mg IVPUSH Q4H PRN PRN Reason: Pain (severe 7-10) Last Admin: 09/01/20 13:58 Dose: 2 mg Documented by: Pantoprazole Sodium (Pantoprazole 40 Mg Tab.Cr) 40 mg PO ACBREAKFAST [facility] Last Admin: 09/02/20 07:43 Dose: 40 mg Documented by: Simvastatin (Simvastatin 20 Mg Tab) 20 mg PO BEDTIME [facility] Last Admin: 09/01/20 21:06 Dose: 20 mg Documented by: Sodium Chloride (Sodium Chloride 0.9% 10 Ml Syringe) 10 ml FLUSH ASDIRECTED PRN PRN Reason: Keep Vein Open Last Admin: 08/31/20 00:04 Dose: 10 ml Documented by: Sodium Chloride (Sodium Chloride 0.9% 2.5 Ml Syringe) 2.5 ml FLUSH ASDIRECTED PRN PRN Reason: Keep Vein Open Last Admin: 08/31/20 00:04 Dose: 2.5 ml Documented by: Vancomycin HCl (Pharmacy To Dose - Vancomycin) 1 dose .XX ASDIRECTED [facility] - Exam General: Reports: Alert, Oriented Lungs: Reports: Clear to Auscultation, Normal Respiratory Effort Cardiovascular: Reports: Regular Rate, Regular Rhythm GI/Abdominal Exam: Soft, Non-Tender Extremities: No Pedal Edema, Other (mild left knee tenderness, erythema and swelling have improved since admission) Psy/Mental Status: Reports: Alert Discharge Operative/Procedures - Procedures Performed I&D Site: L distal knee
== END 2020-09-02 13:25 | disposition home or self-care (01) ==
LOC: MW.ED 22:19 → MW.MS 08-31 01:14
PROVIDERS: ADMIT Student in an Organized Health Care Education/Training Program; ATTEND Student in an Organized Health Care Education/Training Program
DX: L03.116 Cellulitis of left lower limb (principal); E78.00 Pure hypercholesterolemia, unspecified; I10 Essential (primary) hypertension; G47.30 Sleep apnea, unspecified; E11.9 Type 2 diabetes mellitus without complications; E66.9 Obesity, unspecified; Z88.8 Allergy status to other drugs, medicaments and biological substances; Z79.899 Other long term (current) drug therapy; Z79.84 Long term (current) use of oral hypoglycemic drugs; Z98.890 Other specified postprocedural states
CPT/HCPCS: 10060; 36415; 73562; 80048; 80053; 80061; 82947; 83036; 84443; 85025; 87040; 87070; 87075; 87077; 87186; 87205; 96365; 96366; 96367; 96372; 96375; 96376; 97161; 99284; A9270; G0378; J1644; J1815; J2270; J2543; J3370; J3490; J7030; J7120

== ENCOUNTER 2022-06-25 12:51 | Observation (INO) | payer MEDICARE, BC ==
[2022-06-25] MEDS ORDERED: Diltiazem 25 MG/5 ML SDV IVPUSH ONE (13:14)
[2022-06-25] MEDS ORDERED: Aspirin 81 MG Tab.Chew PO ONE (13:14)
[2022-06-25] MEDS ORDERED: Nitroglycerin 0.4 MG Tab.SL SL PRN ×2 (13:14→17:40)
[2022-06-25 13:20] LABS: BASOPHILS PERCENT AUTO 0.3 % (0.0-1.5); EOSINOPHILS ABSOLUTE AUTO 0.3 K/uL (0.0-0.7); EOSINOPHILS PERCENT AUTO 3.7 % (0.0-7.0); HEMATOCRIT 47.5 % (38.0-50.0); HEMOGLOBIN 16.5 g/dL (13.0-17.0); LYMPHOCYTES ABSOLUTE AUTO 1.8 K/uL (0.6-2.4); LYMPHOCYTES PERCENT AUTO 22.7 % (16.0-40.0); MEAN CORPUSCULAR HEMOGLOBIN 30.9 pg (27.0-32.0); MEAN CORPUSCULAR HGB CONC 34.7 g/dL (31.0-37.0); MONOCYTES ABSOLUTE AUTO 0.9 K/uL (0.0-0.8); MONOCYTES PERCENT AUTO 11.5 % (0.0-15.0); NEUTROPHILS ABSOLUTE AUTO 4.8 K/uL (1.4-5.7); NEUTROPHILS PERCENT AUTO 61.8 % (48.0-80.0); NRBC ABSOLUTE 0 K/uL; PLATELET COUNT,PLT 245 K/uL (150-400); RED BLOOD CELL COUNT 5.34 M/uL (4.50-5.90); WHITE BLOOD CELL COUNT,WBC 7.74 K/uL (4.0-11.0)
[2022-06-25 13:38] LABS: A/G RATIO 0.9 (0.9-1.6); ALBUMIN 3.5 g/dL (3.4-5.0); BILIRUBIN TOTAL 0.6 mg/dL (0.2-1.0); CALCIUM 8.8 mg/dL (8.5-10.1); CARBON DIOXIDE,CO2 25.2 mmol/L (21.0-32.0); EST CRCL DRUG DOSING (CG) 37.18 mL/min; POTASSIUM,K 4.8 mmol/L (3.5-5.1); PROTEIN TOTAL,TP 7.2 g/dL (6.4-8.2); TSH ULTRASENSITIVE 2.91 uIU/mL (0.36-3.74)
[2022-06-25] MEDS ORDERED: Magnesium Hydroxide 400 MG/5 ML Susp 30 ML Cup PO PRN (17:37)
[2022-06-25] MEDS ORDERED: Morphine 2 MG/ML SYRINGE IVPUSH PRN (17:37)
[2022-06-25] MEDS ORDERED: Ondansetron 4 MG Tab.DIS PO PRN (17:37)
[2022-06-25] MEDS ORDERED: Acetaminophen 325 MG Tab PO PRN (17:37)
[2022-06-25] MEDS ORDERED: Ondansetron 4 MG/2 ML SDV IVPUSH PRN (17:37)
[2022-06-25] MEDS ORDERED: Temazepam 15 MG Cap PO PRN (17:37)
[2022-06-25] MEDS ORDERED: Metoprolol Tartrate 25 MG Tab PO SCH (21:00)
[2022-06-25] MEDS ORDERED: Simvastatin 20 MG Tab PO SCH (21:00)
[2022-06-25] MEDS: Metoprolol Tartrate 50 MG Tab PO SCH (21:01)
[2022-06-25 21:52] LABS: APPEARANCE,URINE CLEAR; BILIRUBIN,URINE NEGATIVE (NEGATIVE); COLOR,URINE YELLOW; GLUCOSE,URINE NEGATIVE (NEGATIVE); KETONES,URINE NEGATIVE (NEGATIVE); LEUKOCYTE ESTERASE,URINE NEGATIVE (NEGATIVE); NITRITE,URINE NEGATIVE (NEGATIVE); OCCULT BLOOD,URINE NEGATIVE (NEGATIVE); PH,URINE 6.5 (5.0-8.0); PROTEIN,URINE NEGATIVE (NEGATIVE); UROBILINOGEN,URINE 0.2 EU/dL (<2.0)
[2022-06-25 22:01] LABS: BACTERIA,URINE RARE (NEGATIVE); EPITHELIAL CELLS,URINE RARE (NONE-FEW); RBC,URINE 0-1 (0-2/HPF); WBC,URINE 0-1 (0-5/HPF)
[2022-06-26 05:57] LABS: BASOPHILS PERCENT AUTO 0.3 % (0.0-1.5); EOSINOPHILS ABSOLUTE AUTO 0.4 K/uL (0.0-0.7); EOSINOPHILS PERCENT AUTO 4.7 % (0.0-7.0); HEMATOCRIT 46.2 % (38.0-50.0); HEMOGLOBIN 15.7 g/dL (13.0-17.0); LYMPHOCYTES ABSOLUTE AUTO 1.5 K/uL (0.6-2.4); LYMPHOCYTES PERCENT AUTO 19.7 % (16.0-40.0); MEAN CORPUSCULAR HEMOGLOBIN 30.3 pg (27.0-32.0); MEAN CORPUSCULAR VOLUME 89.2 fL (80.0-98.0); MONOCYTES ABSOLUTE AUTO 0.8 K/uL (0.0-0.8); MONOCYTES PERCENT AUTO 9.9 % (0.0-15.0); NEUTROPHILS PERCENT AUTO 65.4 % (48.0-80.0); NRBC ABSOLUTE 0 K/uL; PLATELET COUNT,PLT 228 K/uL (150-400); RED BLOOD CELL COUNT 5.18 M/uL (4.50-5.90); WHITE BLOOD CELL COUNT,WBC 7.65 K/uL (4.0-11.0)
[2022-06-26 06:11] LABS: CALCIUM 8.7 mg/dL (8.5-10.1); CARBON DIOXIDE,CO2 24.1 mmol/L (21.0-32.0); CREATININE 1.5 mg/dL (0.8-1.3); EST CRCL DRUG DOSING (CG) 49.58 mL/min; POTASSIUM,K 4.5 mmol/L (3.5-5.1)
[2022-06-26] MEDS: Metoprolol Tartrate 50 MG Tab PO SCH (08:09)
[2022-06-26] MEDS ORDERED: Aspirin 325 MG Tab.EC PO SCH (09:00)
[2022-06-26] MEDS ORDERED: Isosorbide Mononitrate 30 MG Tab.ER PO SCH (09:00)
[2022-06-26] MEDS ORDERED: Pantoprazole 40 MG Tab.CR PO SCH (09:00)
[2022-06-26] MEDS ORDERED: Isosorbide Mononitrate 60 MG Tab.ER PO SCH (09:00)
[2022-06-26 14:57] VITALS: BP 117/70; PULSE 71
== END 2022-06-26 14:51 | disposition home or self-care (01) ==
LOC: MW.ED 12:51 → MW.MS 16:48
PROVIDERS: ADMIT Internal Medicine; ATTEND Internal Medicine
DX: I48.0 Paroxysmal atrial fibrillation (principal); R07.89 Other chest pain; I20.9 Angina pectoris, unspecified; E11.9 Type 2 diabetes mellitus without complications; I12.9 Hypertensive chronic kidney disease with stage 1 through stage 4 chronic kidney disease, or unspecified chronic kidney disease; N18.2 Chronic kidney disease, stage 2 (mild); N40.0 Benign prostatic hyperplasia without lower urinary tract symptoms; E78.5 Hyperlipidemia, unspecified; E66.9 Obesity, unspecified; G47.33 Obstructive sleep apnea (adult) (pediatric); Z79.84 Long term (current) use of oral hypoglycemic drugs; Z79.899 Other long term (current) drug therapy; Z88.8 Allergy status to other drugs, medicaments and biological substances; Z79.82 Long term (current) use of aspirin; Z68.32 Body mass index [BMI] 32.0-32.9, adult
CPT/HCPCS: 36415; 71045; 80048; 80053; 80061; 81001; 82550; 83880; 84443; 84484; 85025; 85379; 93005; 93246; 99285; A9270; G0378; 93010; 99222; 99239; 99284